=== PATIENT | female | born 1960 | race American Indian/Alaskan Native ===

== ENCOUNTER 2018-07-13 06:09 | Inpatient (IN) | payer MEDICARE ==
[2018-07-03 09:21] VITALS: BMI 27.9
[2018-07-13] MEDS ORDERED: Ropivacaine 0.5% 30ML IV ONE (07:02)
[2018-07-13] MEDS ORDERED: Propofol 10 mg/ml Inj (20 ML) ONE (07:05)
[2018-07-13] MEDS ORDERED: Succinylcholine 200 mg/10 ml Inj IV ONE (07:06)
[2018-07-13] MEDS ORDERED: Neostigmine 1:1000 (1 mg/ml) Inj ONE (07:06)
[2018-07-13] MEDS ORDERED: Rocuronium 10 mg/ml (5 ml) ONE ×2 (07:06→08:34)
[2018-07-13] MEDS ORDERED: Lidocaine 4% (Laryng-O-Jet) Kit MM ONE (07:06)
[2018-07-13] MEDS ORDERED: Midazolam 2 MG/2 ML VIAL ONE (07:06)
[2018-07-13 07:12] LABS: BASO % 0.6 % (0.0-2.0); EOS # 0.2 K/uL (0.0-0.7); EOS % 2.8 % (0.0-4.0); HEMOGLOBIN 12.5 g/dL (12.0-16.0); LYMPH # 2.9 K/uL (1.0-4.3); LYMPH % 34.7 % (20.0-40.0); MEAN CELL VOLUME 87.8 fl (81.0-99.0); MEAN PLATELET VOLUME 8.5 fl (7.2-11.7); MONO # 0.6 K/uL (0.0-0.8); MONO % 7.3 % (0.0-10.0); NEUT # 4.7 K/uL (1.8-7.0); NEUT % 54.6 % (50.0-75.0); NRBC % 0.1 % (0.0-0.0); RBC 4.31 Mil/uL (3.80-5.20); RED CELL DISTRIBUTION WIDTH 14.9 % (11.5-14.5); WHITE BLOOD COUNT 8.5 K/uL (4.8-10.8)
[2018-07-13] MEDS ORDERED: Absorbable Gelatin Sponge Size 12-7 ONE (07:13)
[2018-07-13] MEDS ORDERED: Bacitracin Ointment 30 GM TUBE ONE (07:13)
[2018-07-13] MEDS ORDERED: Thrombin Topical 5,000 Int Units Spray Kit ONE (07:14)
--- NOTE | 2018-07-13 07:16 | CP.PCM.HP ---
History of Present Illness - History of Present Illness History of Present Illness: Orthopedic: Dr Rodriguez Chief Complaint: Right knee pain The patient was seen and examined in the [facility] Unit HPI: 57 years old female with hx of osteoarthritis of the knees with partial left knee replacement and painful right knee. She has failed conservative treatment for the osteoarthtitis of the right knee with Intraarticular inje ctions, analgesics. She has decided on surgical management with a Right Total knee Replacement. PMH: Oteoarthritis PSH: Hysterectomy; Cholecystectomy; Partial left knee replacement; SH: Heavy smoker; No drugs; No Alcohol FH: States: No Known family Hx Allergies:Ampicillin Medication: reviewed Present on Admission - Present on Admission Any Indicators Present on Admission: No History of DVT/PE: No History of Uncontrolled Diabetes: No Urinary Catheter: No Decubitus Ulcer Present: No Review of Systems - Constitutional Constitutional: Chills, Fatigue, Fever, Headache - EENT Eyes: Requires Corrective Lenses. absent: Blurred Vision, Diplopia, Floaters Ears: absent: Decreased Hearing, Ear Discharge, Tinnitus Nose/Mouth/Throat: absent: Epistaxis, Nasal Congestion, Nasal Discharge - Cardiovascular Cardiovascular: absent: Chest Pain, Dyspnea, Edema - Respiratory Respiratory: absent: Cough, Dyspnea, Wheezing - Gastrointestinal Gastrointestinal: absent: Abdominal Pain, Constipation, Diarrhea - Genitourinary Genitourinary: absent: Dysuria, Flank Pain, Hematuria - Musculoskeletal Musculoskeletal: Arthralgias. absent: Back Pain, Muscle Cramps, Myalgias - Integumentary Integumentary: absent: Pruritus, Rash, Skin Ulcer, Sores, Striae, Swelling - Neurological Neurological: absent: Confusion, Dizziness, Focal Weakness - Psychiatric Psychiatric: absent: Anxiety, Depression, Panic Attacks - Endocrine Endocrine: absent: Palpitations, Polydipsia, Polyphagia, Polyuria - Hematologic/Lymphatic Hematologic: absent: Easy Bleeding, Easy Bruising Past Patient History - Past Medical History & Family History Past Medical History?: No - Past Social History Smoking Status: Heavy Smoker > 10 Cigarettes Daily Chewing Tobacco Use: No Cigar Use: No Alcohol: None Drugs: Denies - CARDIAC Hx Cardiac Disorders: No - PULMONARY Hx Respiratory Disorders: No - NEUROLOGICAL Hx Neurological Disorder: No - HEENT Hx HEENT Problems: No - RENAL Hx Chronic Kidney Disease: No - ENDOCRINE/METABOLIC Hx Endocrine Disorders: No - HEMATOLOGICAL/ONCOLOGICAL Hx Blood Disorders: No - INTEGUMENTARY Hx Dermatological Problems: No - MUSCULOSKELETAL/RHEUMATOLOGICAL Hx Musculoskeletal Disorders: Yes Hx Arthritis: Yes (knees) - GASTROINTESTINAL Hx Gastrointestinal Disorders: No - GENITOURINARY/GYNECOLOGICAL Hx Genitourinary Disorders: No - PSYCHIATRIC Hx Post Traumatic Stress Disorder: Yes - SURGICAL HISTORY Hx Surgeries: Yes Hx Cholecystectomy: Yes Hx Hysterectomy: Yes Hx Orthopedic Surgery: Yes (partial implant on left knee) - ANESTHESIA Hx Anesthesia: Yes Hx Anesthesia Reactions: No Has any member of the family had a problem w/ anesthesia?: No Meds Allergies/Adverse Reactions: Allergies Allergy/AdvReac Type Severity Reaction Status Date / Time ampicillin Allergy RASH Verified 07/03/18 09:27 Physical Exam - Constitutional Appears: No Acute Distress - Head Exam Head Exam: ATRAUMATIC, NORMAL INSPECTION, NORMOCEPHALIC - Eye Exam Eye Exam: EOMI, Normal appearance - ENT Exam ENT Exam: Mucous Membranes Moist, Normal Exam - Neck Exam Neck exam: Positive for: Full Rom, Normal Inspection. Negative for: Lymphadenopathy, Tenderness - Respiratory Exam Respiratory Exam: Clear to Auscultation Bilateral. absent: Rales, Rhonchi, Wheezes - Cardiovascular Exam Cardiovascular Exam: REGULAR RHYTHM, RRR, +S1, +S2 - GI/Abdominal Exam GI & Abdominal Exam: Normal Bowel Sounds, Soft - Rectal Exam Rectal Exam: Deferred - Extremities Exam Extremities exam: Positive for: full ROM, normal inspection. Negative for: pedal edema Additional comments: Tight knee pain - Back Exam Back exam: NORMAL INSPECTION. absent: CVA tenderness (L), CVA tenderness (R) - Neurological Exam Neurological exam: Alert, CN II-XII Intact, Oriented x3, Reflexes Normal - Psychiatric Exam Psychiatric exam: Normal Affect, Normal Mood - Skin Skin Exam: Dry, Intact, Normal Color, Warm Results - Vital Signs Recent Vital Signs: Last Vital Signs Temp 98 F 07/13/18 07:06 Pulse 72 07/13/18 07:06 Resp 18 07/13/18 07:06 BP 113/78 07/13/18 07:06 Pulse Ox 98 07/13/18 07:06 - Labs Result Diagrams: 07/13/18 06:50 Labs: Laboratory Results - last 24 hr 07/13/18 06:50 WBC 8.5 RBC 4.31 Hgb 12.5 Hct 37.9 MCV 87.8 MCH 29.0 MCHC 33.0 RDW 14.9 H Plt Count 247 MPV 8.5 Neut % (Auto) 54.6 Lymph % (Auto) 34.7 [place]ke % (Auto) 7.3 Eos % (Auto) 2.8 Baso % (Auto) 0.6 Neut # (Auto) 4.7 Lymph # (Auto) 2.9 Parke # (Auto) 0.6 Eos # (Auto) 0.2 Baso # (Auto) 0.0 Assessment & Plan - Assessment and Plan (Free Text) Plan: 57 years old female with hx of osteoarthritis and ossteonecrosis of the left knee which has failed conservative treatment. She has decided on surgical management with a Right Total knee Replacement. #. Right Knee Osteoarthritis #. Small Subchonral fracture along the posterior medial edge of the medial tibio-femoral plateau with extensive subchondral edema. ( Spontaneous osteonecrosis of the knee) - Dr Rodriguez on consult for [facility] - Orthopedic management - Pain management - PT/OT #. Stress Ulcer Prophylaxis with Pepcid #. DVT prophylaxis with Lovenox #. Code Status: full - Date & Time Date: 07/13/18 Time: 07:16
[2018-07-13] MEDS ORDERED: Tranexamic Acid 1,000 MG in Sodium Chloride 0.9% 100 ML IVPB ONE (07:20)
--- NOTE | 2018-07-13 07:31 | CP.PCM.CON ---
History of Present Illness - History of Present Illness History of Present Illness: Orthopedic consult: Dr. Rodriguez Patient is a 57 y/o female with PMH of HTN who presents for elective R TKA. The patient has had chronic right knee pain for many years that has progressively worsened over the past few months. The pain has been resistant to conservative means with PT, oral meds as well as intrarticular injections. It has been very difficult to perform her usual activities such as walking, climbing stairs and getting up from seated position due to the pain. She describes the pain as dull, intermittent and located diffuse about the knee. She has had prior successful L TKA and was discharged home stable. She denies any cardiac or thromboembolic events. She denies CP/SOB/N/V/D/fever/dysuria/melena. Review of Systems - Review of Systems All systems: reviewed and no additional remarkable complaints except Review of Systems: as per HPI Past Patient History - Past Medical History & Family History Past Medical History?: No Past Family History: Reviewed and not pertinent - Past Social History Smoking Status: Heavy Smoker > 10 Cigarettes Daily Alcohol: None Drugs: Denies - CARDIAC Hx Cardiac Disorders: No Hx Hypertension: Yes - PULMONARY Hx Respiratory Disorders: No - NEUROLOGICAL Hx Neurological Disorder: No - HEENT Hx HEENT Problems: No - RENAL Hx Chronic Kidney Disease: No - ENDOCRINE/METABOLIC Hx Endocrine Disorders: No - HEMATOLOGICAL/ONCOLOGICAL Hx Blood Disorders: No - INTEGUMENTARY Hx Dermatological Problems: No - MUSCULOSKELETAL/RHEUMATOLOGICAL Hx Musculoskeletal Disorders: Yes Hx Arthritis: Yes (knees) - GASTROINTESTINAL Hx Gastrointestinal Disorders: No - GENITOURINARY/GYNECOLOGICAL Hx Genitourinary Disorders: No - PSYCHIATRIC Hx Post Traumatic Stress Disorder: Yes - SURGICAL HISTORY Hx Surgeries: Yes Hx Hysterectomy: Yes Hx Orthopedic Surgery: Yes (partial implant on left knee) - ANESTHESIA Hx Anesthesia: Yes Hx Anesthesia Reactions: No Has any member of the family had a problem w/ anesthesia?: No Meds Allergies/Adverse Reactions: Allergies Allergy/AdvReac Type Severity Reaction Status Date / Time ampicillin Allergy RASH Verified 07/03/18 09:27 - Medications Medications: Current Medications Tranexamic Acid 1,000 mg/ (Sodium Chloride) 110 mls @ 12.5 mls/hr IVPB ONCE ONE Stop: 07/13/18 16:07 Physical Exam - Constitutional Appears: Well, No Acute Distress - Head Exam Head Exam: ATRAUMATIC, NORMOCEPHALIC - Eye Exam Eye Exam: EOMI, Normal appearance, PERRL - ENT Exam ENT Exam: Mucous Membranes Moist - Respiratory Exam Respiratory Exam: NORMAL BREATHING PATTERN - Cardiovascular Exam Cardiovascular Exam: +S1, +S2 - GI/Abdominal Exam GI & Abdominal Exam: Soft. absent: Tenderness - Extremities Exam Additional comments: R knee: mild swelling and effusion diffuse tenderness medially and laterally limited ROM due to pain sensation intact SP/DP/TN motor intact EHL/FHL/TA/G pedal pulses intact calves soft/NT b/l - Neurological Exam Neurological exam: Alert, Oriented x3 - Psychiatric Exam Psychiatric exam: Normal Affect, Normal Mood - Skin Skin Exam: Normal Color, Warm Results - Vital Signs Recent Vital Signs: Last Vital Signs Temp 98 F 07/13/18 07:06 Pulse 72 07/13/18 07:06 Resp 18 07/13/18 07:06 BP 113/78 07/13/18 07:06 Pulse Ox 98 07/13/18 07:06 - Labs Result Diagrams: 07/13/18 06:50 Labs: Laboratory Results - last 24 hr 07/13/18 06:50 WBC 8.5 RBC 4.31 Hgb 12.5 Hct 37.9 MCV 87.8 MCH 29.0 MCHC 33.0 RDW 14.9 H Plt Count 247 MPV 8.5 Neut % (Auto) 54.6 Lymph % (Auto) 34.7 [place] % (Auto) 7.3 Eos % (Auto) 2.8 Baso % (Auto) 0.6 Neut # (Auto) 4.7 Lymph # (Auto) 2.9 [place] # (Auto) 0.6 Eos # (Auto) 0.2 Baso # (Auto) 0.0 Assessment & Plan (1) Osteoarthritis of right knee Assessment and Plan: -OR today for R TKA -Risks/benefits/alternatives were explained to the patient who understands and agrees to proceed with above procedure. -admit to hospitalist -NPO -above d/w Dr. Rodriguez in agreement Status: Acute - Date & Time Date: 07/13/18 Time: 07:15
[2018-07-13 07:41] LABS: T4 11.5 ug/dl (5.5-11.0)
[2018-07-13] MEDS ORDERED: Lactated Ringer's 1,000 ML IV ONE (07:50)
[2018-07-13 07:55] LABS: T3 1.37 nmol/L (1.49-2.60)
[2018-07-13] MEDS ORDERED: Tranexamic Acid 100 mg/ml IV ONE (08:20)
[2018-07-13] MEDS ORDERED: Dexamethasone 4 mg/1 ml ONE (08:39)
[2018-07-13] MEDS ORDERED: Sodium Chloride 0.9% 500 ML IV ONE (09:35)
[2018-07-13] MEDS ORDERED: Dexamethasone 4 mg/1 ml IVP PRN (10:41)
--- NOTE | 2018-07-13 10:43 | PCM.ANESB2 ---
Popliteal Nerve Block - Popliteal Nerve Block Date of Procedure: 07/13/18 Anesthesiologist: Harman Skelton Pre-Procedure Diagnosis: R knee arthritis Post-Procedure Diagnosis: R knee arthritis Procedure Performed: Popliteal Nerve Block Right - Procedure Popliteal Nerve Block: This procedure was explained to the patient that it is for post-operative pain management. Consent was obtained after a thorough discussion with the patient regarding the benefits and possible complications of local anesthetic block of the sciatic nerve at the popliteal level. The patient was brought to the operating room and standard monitors are applied. Time-out was held with the circulating nurse to confirm the correct surgery and the appropriate block. After inducing general anesthesia, patient's operative leg was gently raised and supported and the groove in between the biceps femoris and vastus lateralis muscles was carefully palpated. The skin approximately 8cm above the popliteal crease was then marked. The ultrasound transducer was then applied to the posterior thigh approximately 8cm above the popliteal crease in the transverse plane and the sciatic nerve before its division was visualized lateral to the popliteal artery and in between the bicep femoris and semimembranosus/semitendinosus muscles. After identification, the lateral portion of the thigh was prepped with Chloraprep solution three times. At this point, a # 21 gauge Stimuplex insulated 4 inch needle was inserted into pre-marked area and advanced in a perpendicular direction. The needle was inserted above the ultrasound transducer in-plane towards the sciatic nerve in a [id number] direction. Needle advancement was performed carefully under direct ultrasound visualization. Nerve stimulator was used and dorsiflexion of the R foot was elicited at a current of 0.3 MA. After repeated negative aspiration, 30cc of 0.5% ropivacaine was injected in 5cc aliquots. Under ultrasound guidance the local anesthetics were observed surrounding sciatic nerve . The needle was removed intact and sterile dressing was applied. The patient tolerated the popliteal nerve block well with stable vital signs and was subsequently prepared for the surgery.
[2018-07-13] MEDS ORDERED: Lactated Ringer's 1,000 ML IV SCH ×2 (10:45→11:00)
--- NOTE | 2018-07-13 10:45 | PCM.ANESB3 ---
Femoral Nerve Block - Femoral Nerve Block Date of Procedure: 07/13/18 Anesthesiologist: Harman Skelton Pre-Procedure Diagnosis: R knee arthritis Post-Procedure Diagnosis: Same Procedure Performed: Femoral Nerve Block Right - Procedure Femoral Nerve Block: The procedure was explained to the patient that it is for the post-operative pain management. Consent was obtained after a thorough discussion with the patient regarding the benefits and possible complications of local anesthetic block of the femoral nerve at the inguinal crease area. The patient was brought to the operating room and standard monitors were applied. Time-out was held with the circulating nurse to confirm the correct surgery and the appropriate block. After inducing general anesthesia, patient was placed in supine position with fully extended lower extremities and the right groin exposed. The femoral artery was then carefully palpated. The ultrasound transducer was then applied to this area in the transverse plane and the femoral nerve was visualized lateral to the femoral artery and underneath the fascia iliaca. After thorough identification, the inguinal crease area was prepped with Chloraprep. At this point, a #22 gauge Stimuplex 2-inch needle was inserted immediately lateral to the femoral artery pulse at the inguinal crease and advanced perpendicularly. The needle was inserted to the ultrasound transducer in-plane towards the femoral nerve in a [id number] direction. Needle advancement was performed carefully under direct ultrasound visualization. Nerve stimulator was used and twitch of the quadriceps muscle was obtained at current of 0.3 MA. After negative aspiration, 30cc of 0.5% ropivacaine was injected in 5cc aliquots. Under ultrasound guidance the local anesthetics were observed spreading below fascia iliaca and around the femoral nerve. The needle was removed intact and sterile dressing was applied. The patient had stable vital signs, was conscious and in no apparent distress. The patient tolerated the femoral nerve block well with stable vital signs and w as prepared for subsequent surgery.
[2018-07-13] MEDS ORDERED: Oxycodone/Acetaminophen 5/325 mg Tab PO PRN ×2 (10:46)
--- NOTE | 2018-07-13 12:28 | RAD ---
Date of service: 07/13/2018 PROCEDURE: Right knee HISTORY: s/p R TKA COMPARISON: None TECHNIQUE: Standard protocol for this study/examination. FINDINGS: Expected postoperative findings related to right TKA. IMPRESSION: Satisfactory postoperative status.
--- NOTE | 2018-07-13 15:25 | PCM.SURG1 ---
Surgeon's Initial Post Op Note - Surgeon's Notes Surgeon: Jennifer Toppiece Chopper: AUGUSTUS Winn/ 2nd assist Pardeep Lovelace PA-C Type of Anesthesia: General Endo, Block Regional Anesthesia Administered By: Harman King Pre-Operative Diagnosis: tricompartmental O/A R knee with evidence of osteonecrosis Operative Findings: tricompartmental O/A R Knee. tricomaprtmental synovitis. osteonecrosis medial tiibla plateau Post-Operative Diagnosis: same Operation Performed: R TKR. posterior capsular release. lateralpatella release. anterior and posterior synovectomy Specimen/Specimens Removed: cartilage/bone/synvoium Estimated Blood Loss: EBL {In ML}: 75 Blood Products Given: N/A Drains Used: No Drains Post-Op Condition: Fair Date of Surgery/Procedure: 07/13/18 Time of Surgery/Procedure: 08:50 (time in [id number]/anesthesia indcutrion time 7:50)
[2018-07-13] MEDS: Clindamycin 600mg/50ml D5W 600 MG/50 ML VIAL IVPB SCH (17:07)
[2018-07-13] MEDS: Morphine 4 MG/ML VIAL IVP PRN ×2 (18:34→22:21)
[2018-07-14] MEDS: Clindamycin 600mg/50ml D5W 600 MG/50 ML VIAL IVPB SCH (00:46)
[2018-07-14] MEDS: Morphine 4 MG/ML VIAL IVP PRN ×3 (02:22→10:11)
[2018-07-14] MEDS ORDERED: Morphine 4 MG/ML VIAL IVP ONE (04:42)
[2018-07-14 06:20] LABS: HEMOGLOBIN 11.6 g/dL (12.0-16.0); MEAN CELL VOLUME 87.3 fl (81.0-99.0); MEAN CORPUSCULAR HEMOGLOBIN 28.8 pg (27.0-31.0); RBC 4.03 Mil/uL (3.80-5.20); RED CELL DISTRIBUTION WIDTH 14.9 % (11.5-14.5); WHITE BLOOD COUNT 11.7 K/uL (4.8-10.8)
[2018-07-14 06:32] LABS: BLOOD UREA NITROGEN 8 mg/dl (7-17); CALCIUM 9.8 mg/dL (8.4-10.2); GFR NON-AFRICAN AMERICAN > 60
--- NOTE | 2018-07-14 06:56 | CP.PCM.PN ---
<Keron Foreman - Last Filed: 07/14/18 13:30> Subjective - Date & Time of Evaluation Date of Evaluation: 07/14/18 Time of Evaluation: 06:56 - Subjective Subjective: 57F seen and evaluated at bedside. Rates pain 8/10 today. States ortho is aware. States nerve block wore off last night and had trouble sleeping. Denies N/V/F/C/SOB/CP today. Reports knee dressing was changed this morning. Objective - Vital Signs/Intake and Output Vital Signs (last 24 hours): Temp Pulse Resp BP Pulse Ox 98.8 F 76 20 127/74 98 07/14/18 03:46 07/14/18 03:46 07/14/18 03:46 07/14/18 03:46 07/14/18 03:46 Intake and Output: 07/13/18 07/14/18 18:59 06:59 Intake Total 1600 Output Total 500 Balance 1100 - Medications Medications: Current Medications Acetaminophen (Tylenol 325mg Tab) 650 mg PO Q4 PRN PRN Reason: Fever 101 degrees fahrenheit Docusate Sodium (Colace) 100 mg PO BID [facility] Last Admin: 07/13/18 17:07 Dose: 100 mg Enoxaparin Sodium (Lovenox) 40 mg SC DAILY [facility]; Protocol Ferrous Sulfate (Feosol) 325 mg PO TID [facility] Last Admin: 07/13/18 17:07 Dose: 325 mg Folic Acid (Folic Acid) 1 mg PO DAILY [facility] Lactated Ringer's (Lactated Ringer's) 1,000 mls @ 125 mls/hr IV .Q8H [facility] Last Admin: 07/13/18 10:32 Dose: 200 mls Clindamycin Phosphate (Cleocin) 600 mg in 50 mls @ 100 mls/hr IVPB Q8 [facility]; Protocol Last Admin: 07/14/18 00:46 Dose: 100 mls/hr Lactated Ringer's (Lactated Ringer's) 1,000 mls @ 100 mls/hr IV .Q10H [facility] Last Admin: 07/13/18 22:20 Dose: 100 mls/hr Morphine Sulfate (Morphine) 4 mg IVP Q4 PRN PRN Reason: Pain, severe (8-10) Last Admin: 07/14/18 06:18 Dose: 4 mg Ondansetron HCl (Zofran Inj) 4 mg IVP Q4 PRN PRN Reason: Nausea/Vomiting Oxycodone/Acetaminophen (Percocet 5/325 Mg Tab) 1 tab PO Q4 PRN PRN Reason: Pain, Mild (1-3) Stop: 07/16/18 10:47 Oxycodone/Acetaminophen (Percocet 5/325 Mg Tab) 2 tab PO Q4 PRN PRN Reason: Pain, moderate (4-7) Stop: 07/16/18 10:47 Last Admin: 07/14/18 01:41 Dose: 2 tab - Labs Labs: 07/14/18 05:25 07/14/18 05:25 - Constitutional Appears: Well, Non-toxic, No Acute Distress - Head Exam Head Exam: ATRAUMATIC, NORMOCEPHALIC - ENT Exam ENT Exam: Mucous Membranes Moist, Normal Exam - Respiratory Exam Respiratory Exam: Clear to Ausculation Bilateral, NORMAL BREATHING PATTERN - Cardiovascular Exam Cardiovascular Exam: REGULAR RHYTHM, +S1, +S2 - GI/Abdominal Exam GI & Abdominal Exam: Soft, Normal Bowel Sounds. absent: Tenderness - Extremities Exam Additional comments: R knee: mild swelling and effusion diffuse tenderness medially and laterally limited ROM due to pain sensation intact SP/DP/TN motor intact EHL/FHL/TA/G pedal pulses intact calves soft/NT b/l - Neurological Exam Neurological Exam: Alert, Oriented x3 - Psychiatric Exam Psychiatric exam: Normal Affect, Normal Mood - Skin Skin Exam: Normal Color, Warm Assessment and Plan - Assessment and Plan (Free Text) Assessment: 57F with hx of osteoarthritis and ossteonecrosis POD 1 R total knee replacement Plan: 1. Right Knee Osteoarthritis - x-ray - Small Subchonral fracture along the posterior medial edge of the medial tibio-femoral plateau with extensive subchondral edema. ( Spontaneous osteonecrosis of the knee) - postop x-ray - satisfactory postop status - Dr Rodriguez on consult for Orthopedic - per ortho, for d/c tomorrow - POD 1 TKR - Orthopedic management - Pain management consulted - PT/OT - benefit from further skilled treatment, patient desire to go home - clindamycin 600mg 2 doses given 2. Stress Ulcer Prophylaxis - pepcid 3. DVT prophylaxis - Lovenox 4. Full code <Becky Rhoades - Last Filed: 07/14/18 16:32> Objective - Vital Signs/Intake and Output Vital Signs (last 24 hours): Temp Pulse Resp BP Pulse Ox 98.6 F 78 20 156/82 H 98 07/14/18 08:04 07/14/18 11:36 07/14/18 08:04 07/14/18 08:04 07/14/18 08:04 - Medications Medications: Current Medications Acetaminophen (Tylenol 325mg Tab) 975 mg PO Q8 [facility] Stop: 07/16/18 09:01 Last Admin: 07/14/18 08:44 Dose: 975 mg Cyproheptadine HCl (Periactin) 4 mg PO TID [facility] Docusate Sodium (Colace) 100 mg PO BID [facility] Last Admin: 07/14/18 08:41 Dose: 100 mg Enoxaparin Sodium (Lovenox) 40 mg SC DAILY [facility]; Protocol Last Admin: 07/14/18 10:12 Dose: 40 mg Ferrous Sulfate (Feosol) 325 mg PO TID [facility] Last Admin: 07/14/18 13:06 Dose: 325 mg Folic Acid (Folic Acid) 1 mg PO DAILY [facility] Last Admin: 07/14/18 08:41 Dose: 1 mg Gabapentin (Neurontin) 600 mg PO BID [facility] Last Admin: 07/14/18 10:12 Dose: 600 mg Home Med (Doxepin Hcl [Doxepin Hcl]) 150 mg PO DAILY [facility] Hydromorphone HCl (Dilaudid 0.2 Mg/Ml Drug Safety Specialist) 0 mg IV Q1 [facility]; Protocol Last Admin: 07/14/18 11:37 Dose: 6 mg Morphine Sulfate (Morphine) 4 mg IVP Q4 PRN PRN Reason: Pain, severe (8-10) Last Admin: 07/14/18 10:11 Dose: 4 mg Ondansetron HCl (Zofran Inj) 4 mg IVP Q4 PRN PRN Reason: Nausea/Vomiting Oxycodone HCl (Oxycodone Immediate Release Tab) 10 mg PO Q4 PRN PRN Reason: Pain, moderate (4-7) Last Admin: 07/14/18 08:39 Dose: 10 mg Trazodone HCl (Desyrel) 100 mg PO [facility] - Labs Labs: 07/14/18 05:25 07/14/18 05:25 Attending/Attestation - Attestation I have personally seen and examined this patient.: Yes I have fully participated in the care of the patient.: Yes I have reviewed all pertinent clinical information, including history, physical exam and plan: Yes Notes (Text): 1. s/p Right Knee TKR - Pain mgt consulted - rec starting Dilaudid [employer]PER[employer]OR - PT/OT consult - DVT proph- Lovenox 2. Depression - Pt takes Doxepin, Cyproheptadine , Trazodone and Gabapentin at home ( has been on these meds for many years), we will continue 3. HTN - Hold home med ( diuretics), instead will give low dose Norvasc as pt requires volume post op
[2018-07-14] MEDS ORDERED: Potassium Chloride 20 mEq ER Tab PO ONE (08:26)
[2018-07-14] MEDS ORDERED: oxyCODONE 10 mg Immediate Release Tab PO PRN (08:26)
[2018-07-14] MEDS ORDERED: Lactated Ringer's 1,000 ML IV SCH (08:30)
--- NOTE | 2018-07-14 08:30 | CP.PCM.PN ---
Subjective - Date & Time of Evaluation Date of Evaluation: 07/14/18 Time of Evaluation: 07:30 - Subjective Subjective: Patient seen and examined at bedside. Pain rated 8/10 this AM to posterior and anterior knee. Noted nerve block wore off last night, unable to sleep due to pain. No other complaints. Denies CP/SOB/fever/CASTANEDA. Objective - Vital Signs/Intake and Output Vital Signs (last 24 hours): Temp Pulse Resp BP Pulse Ox 98.6 F 63 20 156/82 H 98 07/14/18 08:04 07/14/18 08:04 07/14/18 08:04 07/14/18 08:04 07/14/18 08:04 - Medications Medications: Current Medications Acetaminophen (Tylenol 325mg Tab) 975 mg PO Q8 [facility] Stop: 07/16/18 09:01 Docusate Sodium (Colace) 100 mg PO BID [facility] Last Admin: 07/13/18 17:07 Dose: 100 mg Enoxaparin Sodium (Lovenox) 40 mg SC DAILY [facility]; Protocol Ferrous Sulfate (Feosol) 325 mg PO TID [facility] Last Admin: 07/13/18 17:07 Dose: 325 mg Folic Acid (Folic Acid) 1 mg PO DAILY [facility] Lactated Ringer's (Lactated Ringer's) 1,000 mls @ 125 mls/hr IV .Q8H [facility] Last Admin: 07/13/18 10:32 Dose: 200 mls Lactated Ringer's (Lactated Ringer's) 1,000 mls @ 100 mls/hr IV .Q10H [facility] Last Admin: 07/13/18 22:20 Dose: 100 mls/hr Morphine Sulfate (Morphine) 4 mg IVP Q4 PRN PRN Reason: Pain, severe (8-10) Last Admin: 07/14/18 06:18 Dose: 4 mg Ondansetron HCl (Zofran Inj) 4 mg IVP Q4 PRN PRN Reason: Nausea/Vomiting Oxycodone HCl (Oxycodone Immediate Release Tab) 10 mg PO Q4 PRN PRN Reason: Pain, moderate (4-7) Potassium Chloride (K-Dur 20 Meq Er Tab) 20 meq PO ONCE ONE Stop: 07/14/18 08:27 - Labs Labs: 07/14/18 05:25 07/14/18 05:25 - Extremities Exam Additional comments: R knee: Dressings CDI, Aquacel CDI mod diffuse tenderness anteriorly compartments soft sensation intact SP/DP/TN motor intact EHL/FHL/TA/G pedal pulses intact calves soft NT b/l Assessment and Plan (1) Osteoarthritis of right knee Assessment & Plan: POD# 1 s/p R TKA -pain management consult ordered -outer dressings changed, reapplied loosely -PT/OT WBAT -DVT ppx -discharge planning to home tomorrow -above d/w Dr. Rodriguez in agreement Status: Acute
--- NOTE | 2018-07-14 10:06 | OP ---
PROCEDURE DATE: 07/13/2018 TIME OF SURGERY: 08:50. TIME IN THE ROOM ANESTHESIA INDUCTION TIME: 07:50. PREOPERATIVE DIAGNOSIS: Tricompartmental osteoarthritis of the right knee with evidence of osteonecrosis at the medial tibial plateau. POSTOPERATIVE DIAGNOSIS: Tricompartmental osteoarthritis of the right knee with evidence of osteonecrosis at the medial tibial plateau. OPERATIVE FINDINGS: 1. Tricompartmental osteoarthritis of the right knee. 2. Tricompartmental synovitis. 3. Osteonecrosis, medial tibial plateau. PROCEDURE: 1. Right total knee replacement arthroplasty. 2. Posterior capsular release. 3. Lateral patellar retinacular release. 4. Anterior and posterior synovectomy. 5. Computer navigation. SURGEON: Jayden Rodriguez MD. NOTE TELLER: Esperanza Marinelli, certified registered nursing culture media laboratory assistant. SECOND BEARINGIZER: Pardeep Lovelace PA-C. SPECIMENS REMOVED: Cartilage, bone, synovium. BLOOD LOSS: 75 mL. No blood products given. DRAINS: No drains. POSTOPERATIVE CONDITION: Fair. OPERATIVE INDICATION: Brenda Lacy is a 57-year-old woman who presents with severe pain and restricted range of motion. The patient had undergone unicompartmental replacement of the contralateral knee and is unhappy with it, but she is now having severe pain and restricted range of motion of the right knee and demands replacement arthroplasty. Pros, cons, risks and benefits of alternative procedures including benign neglect, arthroscopy, and the total knee replacement and unicompartmental replacement were discussed. The patient wishes total knee replacement arthroplasty because of her bad experience with unicompartmental arthroplasty in [place]. MRI examination was reviewed and again pros, cons, risks and benefits were discussed. After the satisfactory induction of general and regional anesthesia, after having identified side, site, and procedure and critical pause/time-out after the satisfactory induction of the anesthetic, the patient identified as Brenda Lacy in the supine position with all bony prominences well padded. The right lower extremity was prepped and free draped in usual fashion for extremity surgery. The tourniquet had been applied, but was not yet inflated. After exsanguinating the limb using a 6-inch Esmarch bandage, the tourniquet which had been applied was inflated to 350 mmHg. A 6-inch straight midline approach was made to the knee. The skin incision was carried down through the skin and subcutaneous tissue. Medial arthrotomy was accomplished. The patella was everted. The knee was flexed. Dissection was carried around posteromedially to the direct head of the semimembranosus tendon. A portion of patellar ligament was elevated. The tibia was dislocated anteriorly. Anterior posterior cruciate ligaments were excised. Medial and lateral meniscectomies were accomplished. The computer navigation commences with the anterior strut placed on the proximal medial aspect of the tibia for the computer navigation and accelerometer. This having been accomplished, the sensor and the accelerometer placed. Registration was accomplished. Offset was determined from the posterior insertion of the anterior cruciate ligament. Medial and lateral registration was accomplished, medial malleolus, lateral malleolus. The varus-valgus of the tibial cut was set at 0 degrees with 3.5 degrees posterior slope. The initial osteotomy was accomplished 10 mm below the more prominent side. This having been accomplished, the #1 tibial component template was placed back to rotation of the tibial component with the lateral aspect of the tibial condyle, mid malleolar axis and medial third of the tibial tuberosity. At this point in time, attention was turned to the femur. The guide pin is placed superior to the intercondylar notch. The distal femoral cutting guide was placed. At this point an anterior and posterior synovectomy was accomplished. The distal femoral cutting guide is affixed. The sensor and the camera for the computer navigation are fixed and this having been accomplished, the cutting block is placed along the mid malleolar axis. The cutting block is set to neutral on the mechanical axis at 10 degrees. This having been accomplished, the distal femoral cut is accomplished after computer navigation defines the distal femoral cut. This having been accomplished, anterior and posterior sizing was accomplished. The four-in-one block is placed along the epicondylar axis. Posterior condyles were osteotomized, anterior osteotomy was accomplished as well as chamfer cuts. The tensor was placed. Posterior capsule was released and lateral patellar retinacular release accomplished as well. The femoral notch is accomplished as well. This having been accomplished, trialing was accomplished with 13 mm polyethylene found to be excellent. Attention was turned to the patella. Patella osteotomy was accomplished. Patella was sized to 32 mm. This having been accomplished, anterior and posterior osteotomies having been accomplished, the lateral patellar retinaculum release was accomplished and the posterior capsule was released. Trialing was accomplished was found to be excellent balance. At this point in time, the femur, tibia, and patella are prepared. The #2 femoral component was applied, #1 cemented tibial tray, 30 mm polyethylene, 32 mm patella. At this point in time, the tourniquet was deflated, hemostasis controlled. Closures in layers, #2 FiberWire for the medial arthrotomy followed by 0 Vicryl, 2-0 Vicryl and wanda for skin. Blood loss approximately 75 mL. Postoperative x-rays reveal excellent position of the construct. The computer navigation apparatus had of course been removed. Jayden Rodriguez MD
[2018-07-14] MEDS: Enoxaparin 40 mg Syringe SC SCH (10:12)
[2018-07-15 06:23] LABS: BASO % 0.4 % (0.0-2.0); EOS # 0.1 K/uL (0.0-0.7); EOS % 0.8 % (0.0-4.0); HEMOGLOBIN 12.3 g/dL (12.0-16.0); LYMPH # 2.1 K/uL (1.0-4.3); LYMPH % 21.1 % (20.0-40.0); MEAN CELL VOLUME 87.3 fl (81.0-99.0); MEAN CORPUSCULAR HGB CONC 33.2 g/dL (33.0-37.0); MEAN PLATELET VOLUME 8.9 fl (7.2-11.7); MONO # 0.8 K/uL (0.0-0.8); MONO % 8.4 % (0.0-10.0); NEUT % 69.3 % (50.0-75.0); RBC 4.23 Mil/uL (3.80-5.20); RED CELL DISTRIBUTION WIDTH 14.9 % (11.5-14.5); WHITE BLOOD COUNT 10.1 K/uL (4.8-10.8)
[2018-07-15 06:52] LABS: BLOOD UREA NITROGEN 4 mg/dl (7-17); GFR NON-AFRICAN AMERICAN > 60
[2018-07-15] MEDS: Enoxaparin 40 mg Syringe SC SCH (08:59)
--- NOTE | 2018-07-15 09:01 | CP.PCM.CON ---
History of Present Illness - History of Present Illness History of Present Illness: 57yF POD 2 s/p R TKR. Pt is currently on IV COKE BURNER, and as per nurse there are no overnight events. Pt has pain in right knee, VAS 3/10 which is intermittent dull pain which is worse with movement and better with rest and medication. Pain has pain in operative site which is controlled on current rx. Pt to participate in PT. Past Patient History - Past Medical History & Family History Past Medical History?: No - Past Social History Smoking Status: Heavy Smoker > 10 Cigarettes Daily Chewing Tobacco Use: No Cigar Use: No Alcohol: None Drugs: Denies - CARDIAC Hx Cardiac Disorders: No - PULMONARY Hx Respiratory Disorders: No - NEUROLOGICAL Hx Neurological Disorder: No - HEENT Hx HEENT Problems: No - RENAL Hx Chronic Kidney Disease: No - ENDOCRINE/METABOLIC Hx Endocrine Disorders: No - HEMATOLOGICAL/ONCOLOGICAL Hx Blood Disorders: No - INTEGUMENTARY Hx Dermatological Problems: No - MUSCULOSKELETAL/RHEUMATOLOGICAL Hx Musculoskeletal Disorders: Yes Hx Arthritis: Yes (knees) - GASTROINTESTINAL Hx Gastrointestinal Disorders: No - GENITOURINARY/GYNECOLOGICAL Hx Genitourinary Disorders: No - PSYCHIATRIC Hx Post Traumatic Stress Disorder: Yes - SURGICAL HISTORY Hx Surgeries: Yes Hx Cholecystectomy: Yes Hx Hysterectomy: Yes Hx Orthopedic Surgery: Yes (partial implant on left knee) - ANESTHESIA Hx Anesthesia: Yes Hx Anesthesia Reactions: No Has any member of the family had a problem w/ anesthesia?: No Meds Allergies/Adverse Reactions: Allergies Allergy/AdvReac Type Severity Reaction Status Date / Time ampicillin Allergy RASH Verified 07/03/18 09:27 - Medications Medications: Current Medications Acetaminophen (Tylenol 325mg Tab) 975 mg PO Q8 [facility] Stop: 07/16/18 09:01 Last Admin: 07/15/18 01:06 Dose: 975 mg Cyproheptadine HCl (Periactin) 4 mg PO TID [facility] Last Admin: 07/14/18 17:45 Dose: 4 mg Docusate Sodium (Colace) 100 mg PO BID [facility] Last Admin: 07/14/18 17:30 Dose: 100 mg Doxepin HCl (Sinequan) 150 mg PO DAILY [facility] Enoxaparin Sodium (Lovenox) 40 mg SC DAILY [facility]; Protocol Last Admin: 07/14/18 10:12 Dose: 40 mg Ferrous Sulfate (Feosol) 325 mg PO TID [facility] Last Admin: 07/14/18 17:30 Dose: 325 mg Folic Acid (Folic Acid) 1 mg PO DAILY [facility] Last Admin: 07/14/18 08:41 Dose: 1 mg Gabapentin (Neurontin) 600 mg PO BID [facility] Last Admin: 07/14/18 17:30 Dose: 600 mg Hydromorphone HCl (Dilaudid 0.2 Mg/Ml Doll Maker) 0 mg IV Q1 [facility]; Protocol Last Admin: 07/15/18 02:01 Dose: 6 mg Morphine Sulfate (Morphine) 4 mg IVP Q4 PRN PRN Reason: Pain, severe (8-10) Last Admin: 07/14/18 10:11 Dose: 4 mg Ondansetron HCl (Zofran Inj) 4 mg IVP Q4 PRN PRN Reason: Nausea/Vomiting Oxycodone HCl (Oxycodone Immediate Release Tab) 10 mg PO Q4 PRN PRN Reason: Pain, moderate (4-7) Last Admin: 07/14/18 08:39 Dose: 10 mg Trazodone HCl (Desyrel) 100 mg PO HS [facility] Last Admin: 07/14/18 21:22 Dose: 100 mg Physical Exam - Constitutional Appears: Non-toxic, No Acute Distress - Neurological Exam Additional comments: RLE c/d/i pt can wiggle toes, sensation grossly intact DP flex 5/5 Results - Vital Signs Recent Vital Signs: Last Vital Signs Temp 98.8 F 07/15/18 04:00 Pulse 86 07/15/18 04:00 Resp 20 07/15/18 04:00 BP 159/90 H 07/15/18 04:00 Pulse Ox 99 07/15/18 04:00 - Labs Result Diagrams: 07/15/18 05:30 07/15/18 05:30 Labs: Laboratory Results - last 24 hr 07/14/18 07/15/18 07/15/18 05:25 05:30 05:30 WBC 10.1 RBC 4.23 Hgb 12.3 Hct 36.9 MCV 87.3 MCH 29.0 MCHC 33.2 RDW 14.9 H Plt Count 234 MPV 8.9 Neut % (Auto) 69.3 Lymph % (Auto) 21.1 [place] % (Auto) 8.4 Eos % (Auto) 0.8 Baso % (Auto) 0.4 Neut # (Auto) 7.0 Lymph # (Auto) 2.1 [place]man # (Auto) 0.8 Eos # (Auto) 0.1 Baso # (Auto) 0.0 Sodium 139 138 Potassium 3.5 L 4.0 Chloride 105 104 Carbon Dioxide 22 25 Anion Gap 16 13 BUN 8 4 L Creatinine 0.7 0.6 L Est GFR ( Amer) > 60 > 60 Est GFR (Non-Af Amer) > 60 > 60 Random Glucose 107 H 113 H Calcium 9.8 10.0 TSH 3rd Generation < 0.02 L < 0.02 L Assessment & Plan - Assessment and Plan (Free Text) Plan: 1. PT 2. May continue COKE BURNER and transition to PO pain meds. Pt can transition to percocet 5/325 1-2 tabs po q4-6h prn moderate to severe pain. Pt can also have IV toradol as an adjunct. 3. Care as per primary team
[2018-07-15] MEDS ORDERED: Oxycodone/Acetaminophen 5/325 mg Tab PO PRN ×2 (10:43)
--- NOTE | 2018-07-15 11:58 | CP.PCM.DIS ---
<Keron Foreman - Last Filed: 07/15/18 11:56> Provider - Provider Date of Admission: 07/13/18 10:46 Attending physician: Papo Saravia Consults: 07/13/18 07:16 Orthopedic Consult Routine Comment: Consulting Provider: Jayden Rodriguez III Consulting Physician: Jayden Rodriguez III Reason for Consult: Right knee arthritis 07/13/18 10:46 Case Management Referral Routine Comment: Physician Instructions: Reason For Exam: Reason for Referral: Discharge Planning 07/14/18 08:24 Physician Consult Routine Comment: Consulting Provider: Kacie Garcia Consulting Physician: Kacie Garcia Reason for Consult: pain mgmt, s/p R TKA Time Spent in preparation of Discharge (in minutes): 30 Diagnosis - Discharge Diagnosis (1) Osteoarthritis of right knee Status: Acute Hospital Course - Lab Results Lab Results: Most Recent Lab Values WBC 10.1 K/uL (4.8-10.8) 07/15/18 05:30 RBC 4.23 Mil/uL (3.80-5.20) 07/15/18 05:30 Hgb 12.3 g/dL (12.0-16.0) 07/15/18 05:30 Hct 36.9 % (34.0-47.0) 07/15/18 05:30 MCV 87.3 fl (81.0-99.0) 07/15/18 05:30 MCH 29.0 pg (27.0-31.0) 07/15/18 05:30 MCHC 33.2 g/dL (33.0-37.0) 07/15/18 05:30 RDW 14.9 % (11.5-14.5) H 07/15/18 05:30 Plt Count 234 K/uL (130-400) 07/15/18 05:30 MPV 8.9 fl (7.2-11.7) 07/15/18 05:30 Neut % (Auto) 69.3 % (50.0-75.0) 07/15/18 05:30 Lymph % (Auto) 21.1 % (20.0-40.0) 07/15/18 05:30 [place] % (Auto) 8.4 % (0.0-10.0) 07/15/18 05:30 Eos % (Auto) 0.8 % (0.0-4.0) 07/15/18 05:30 Baso % (Auto) 0.4 % (0.0-2.0) 07/15/18 05:30 Neut # (Auto) 7.0 K/uL (1.8-7.0) 07/15/18 05:30 Lymph # (Auto) 2.1 K/uL (1.0-4.3) 07/15/18 05:30 [place] # (Auto) 0.8 K/uL (0.0-0.8) 07/15/18 05:30 Eos # (Auto) 0.1 K/uL (0.0-0.7) 07/15/18 05:30 Baso # (Auto) 0.0 K/uL (0.0-0.2) 07/15/18 05:30 Sodium 138 mmol/l (132-148) 07/15/18 05:30 Potassium 4.0 MMOL/L (3.6-5.0) 07/15/18 05:30 Chloride 104 mmol/L (98-107) 07/15/18 05:30 Carbon Dioxide 25 mmol/L (22-30) 07/15/18 05:30 Anion Gap 13 (10-20) 07/15/18 05:30 BUN 4 mg/dl (7-17) L 07/15/18 05:30 Creatinine 0.6 mg/dl (0.7-1.2) L 07/15/18 05:30 Est GFR ( Amer) > 60 07/15/18 05:30 Est GFR (Non-Af Amer) > 60 07/15/18 05:30 Random Glucose 113 mg/dL (65-105) H 07/15/18 05:30 Calcium 10.0 mg/dL (8.4-10.2) 07/15/18 05:30 Thyroxine (T4) 11.5 ug/dl (5.5-11.0) H 07/13/18 06:50 Total T3 1.37 nmol/L (1.49-2.60) L 07/13/18 06:50 TSH 3rd Generation < 0.02 mIU/ML (0.46-4.68) L 07/15/18 05:30 Blood Type A POSITIVE 07/13/18 06:50 Blood Type Confirm A POSITIVE 07/13/18 08:00 Antibody Screen Negative 07/13/18 06:50 Crossmatch See Detail 07/13/18 06:50 BBK History Checked No verified bt 07/13/18 06:50 - Hospital Course Hospital Course: 57 years old female with hx of osteoarthritis of the knees with partial left knee replacement and painful right knee was admitted under hospitalist service and taken to the OR for a R total knee replacement with Dr. Rodriguez as she had failed conservative treatment for the osteoarthtitis of the right knee with Intraarticular injections, analgesics and she decided on surgical management. She is POD 2 today. Post op x-ray showed satisfactory postop status. She was given 3 doses of clindamycin for prophylaxis s/p right knee surgery. She was seen by PT/OT and was recommended further skilled physical therapy and treatment. Pain management was consulted, d/c [facility], and was transitioned to PO pain meds with percocet for moderate and severe pain. Also instructed to use toradol IV as adjunct. She was started on amlodipine 5mg while in house. Her TSH and thyroid hormones were abnormal and have been monitored while in house. She will be d/c to TCU for pain management, PT, and deconditioning. - Date & Time of H&P Date of H&P: 07/15/18 Time of H&P: 11:57 Discharge Exam - Head Exam Head Exam: ATRAUMATIC, NORMOCEPHALIC - Eye Exam Eye Exam: EOMI, Normal appearance - ENT Exam ENT Exam: Mucous Membranes Moist, Normal Exam - Neck Exam Neck exam: Full Rom - Respiratory Exam Respiratory Exam: Clear to PA & Lateral, NORMAL BREATHING PATTERN - Cardiovascular Exam Cardiovascular Exam: REGULAR RHYTHM, +S1, +S2 - GI/Abdominal Exam GI & Abdominal Exam: Normal Bowel Sounds, Soft - Extremities Exam Additional comments: R knee: mild swelling and effusion diffuse tenderness medially and laterally limited ROM due to pain sensation intact SP/DP/TN motor intact EHL/FHL/TA/G pedal pulses intact calves soft/NT b/l - Neurological Exam Neurological exam: Alert, Oriented x3 - Psychiatric Exam Psychiatric exam: Normal Affect, Normal Mood - Skin Skin Exam: Intact, Normal Color, Warm Discharge Plan - Follow Up Plan Condition: STABLE Disposition: REHAB FACILITY/REHAB UNIT Instructions: Osteoarthritis (DC), Total Knee Replacement (DC) Additional Instructions: d/c to TCU Referrals: Jayden Rodriguez III, MD [Staff Provider] - Clinical Quality Measures - Date & Time of Discharge Summary Date of Discharge Summary: 07/15/18 Time of Discharge Summary: 11:58 <Becky Rhoades - Last Filed: 07/15/18 17:25> Provider - Provider Date of Admission: 07/13/18 10:46 Attending physician: Papo Saravia Consults: 07/13/18 07:16 Orthopedic Consult Routine Comment: Consulting Provider: Jayden Rodriguez III Consulting Physician: Jayden Rodriguez III Reason for Consult: Right knee arthritis 07/13/18 10:46 Case Management Referral Routine Comment: Physician Instructions: Reason For Exam: Reason for Referral: Discharge Planning 07/14/18 08:24 Physician Consult Routine Comment: Consulting Provider: Kacie Garcia Consulting Physician: Kacie Garcia Reason for Consult: pain mgmt, s/p R TKA Hospital Course - Lab Results Lab Results: Most Recent Lab Values WBC 10.1 K/uL (4.8-10.8) 07/15/18 05:30 RBC 4.23 Mil/uL (3.80-5.20) 07/15/18 05:30 Hgb 12.3 g/dL (12.0-16.0) 07/15/18 05:30 Hct 36.9 % (34.0-47.0) 07/15/18 05:30 MCV 87.3 fl (81.0-99.0) 07/15/18 05:30 MCH 29.0 pg (27.0-31.0) 07/15/18 05:30 MCHC 33.2 g/dL (33.0-37.0) 07/15/18 05:30 RDW 14.9 % (11.5-14.5) H 07/15/18 05:30 Plt Count 234 K/uL (130-400) 07/15/18 05:30 MPV 8.9 fl (7.2-11.7) 07/15/18 05:30 Neut % (Auto) 69.3 % (50.0-75.0) 07/15/18 05:30 Lymph % (Auto) 21.1 % (20.0-40.0) 07/15/18 05:30 [place] % (Auto) 8.4 % (0.0-10.0) 07/15/18 05:30 Eos % (Auto) 0.8 % (0.0-4.0) 07/15/18 05:30 Baso % (Auto) 0.4 % (0.0-2.0) 07/15/18 05:30 Neut # (Auto) 7.0 K/uL (1.8-7.0) 07/15/18 05:30 Lymph # (Auto) 2.1 K/uL (1.0-4.3) 07/15/18 05:30 [place] # (Auto) 0.8 K/uL (0.0-0.8) 07/15/18 05:30 Eos # (Auto) 0.1 K/uL (0.0-0.7) 07/15/18 05:30 Baso # (Auto) 0.0 K/uL (0.0-0.2) 07/15/18 05:30 Sodium 138 mmol/l (132-148) 07/15/18 05:30 Potassium 4.0 MMOL/L (3.6-5.0) 07/15/18 05:30 Chloride 104 mmol/L (98-107) 07/15/18 05:30 Carbon Dioxide 25 mmol/L (22-30) 07/15/18 05:30 Anion Gap 13 (10-20) 07/15/18 05:30 BUN 4 mg/dl (7-17) L 07/15/18 05:30 Creatinine 0.6 mg/dl (0.7-1.2) L 07/15/18 05:30 Est GFR ( Amer) > 60 07/15/18 05:30 Est GFR (Non-Af Amer) > 60 07/15/18 05:30 Random Glucose 113 mg/dL (65-105) H 07/15/18 05:30 Calcium 10.0 mg/dL (8.4-10.2) 07/15/18 05:30 Thyroxine (T4) 11.5 ug/dl (5.5-11.0) H 07/13/18 06:50 Total T3 1.37 nmol/L (1.49-2.60) L 07/13/18 06:50 TSH 3rd Generation < 0.02 mIU/ML (0.46-4.68) L 07/15/18 05:30 Blood Type A POSITIVE 07/13/18 06:50 Blood Type Confirm A POSITIVE 07/13/18 08:00 Antibody Screen Negative 07/13/18 06:50 Crossmatch See Detail 07/13/18 06:50 BBK History Checked No verified bt 07/13/18 06:50 Attending/Attestation - Attestation I have personally seen and examined this patient.: Yes I have fully participated in the care of the patient.: Yes I have reviewed all pertinent clinical information, including history, physical exam and plan: Yes Notes (Text): 1. Primary OA s/p Right Knee TKR - clared by Ortho for d/c - Pain mgt - PT/OT - DVT proph- Lovenox - d/c to TCU for further Rehab 2. Depression - Pt takes Doxepin, Cyproheptadine , Trazodone and Gabapentin at home ( has been on these meds for many years), we will continue 3. HTN - cont Norvasc
--- NOTE | 2018-07-15 14:21 | CP.PCM.PN ---
Subjective - Date & Time of Evaluation Date of Evaluation: 07/15/18 Time of Evaluation: 10:30 - Subjective Subjective: Patient seen and examined OOB to chair. Pain better controlled but moderate at this time. No new complaints. Objective - Vital Signs/Intake and Output Vital Signs (last 24 hours): Temp Pulse Resp BP Pulse Ox 98.8 F 95 H 20 156/99 H 99 07/15/18 04:00 07/15/18 11:24 07/15/18 04:00 07/15/18 11:24 07/15/18 04:00 - Medications Medications: Current Medications Amlodipine Besylate (Norvasc) 5 mg PO DAILY [facility] Last Admin: 07/15/18 11:24 Dose: 5 mg Cyproheptadine HCl (Periactin) 4 mg PO TID [facility] Last Admin: 07/15/18 13:12 Dose: 4 mg Docusate Sodium (Colace) 100 mg PO BID [facility] Last Admin: 07/15/18 08:57 Dose: 100 mg Doxepin HCl (Sinequan) 150 mg PO DAILY [facility] Last Admin: 07/15/18 09:00 Dose: 150 mg Enoxaparin Sodium (Lovenox) 40 mg SC DAILY [facility]; Protocol Last Admin: 07/15/18 08:59 Dose: 40 mg Ferrous Sulfate (Feosol) 325 mg PO TID [facility] Last Admin: 07/15/18 13:12 Dose: 325 mg Folic Acid (Folic Acid) 1 mg PO DAILY [facility] Last Admin: 07/15/18 08:58 Dose: 1 mg Gabapentin (Neurontin) 600 mg PO BID [facility] Last Admin: 07/15/18 08:59 Dose: 600 mg Ketorolac Tromethamine (Toradol) 30 mg IVP Q6 PRN PRN Reason: Pain, moderate (4-7) Last Admin: 07/15/18 10:55 Dose: 30 mg Ondansetron HCl (Zofran Inj) 4 mg IVP Q4 PRN PRN Reason: Nausea/Vomiting Oxycodone/Acetaminophen (Percocet 5/325 Mg Tab) 2 tab PO Q4 PRN PRN Reason: Pain, severe (8-10) Stop: 07/18/18 10:44 Oxycodone/Acetaminophen (Percocet 5/325 Mg Tab) 1 tab PO Q4 PRN PRN Reason: Pain, moderate (4-7) Stop: 07/18/18 10:44 Trazodone HCl (Desyrel) 100 mg PO HS [facility] Last Admin: 07/14/18 21:22 Dose: 100 mg - Labs Labs: 07/15/18 05:30 07/15/18 05:30 - Extremities Exam Additional comments: R knee: Dressings CDI, Aquacel CDI Incision CDI with wanda compartments soft sensation intact SP/DP/TN motor intact EHL/FHL/TA/G pedal pulses intact calves soft NT b/l Assessment and Plan (1) Osteoarthritis of right knee Assessment & Plan: POD# 2 s/p R TKA -pain management consult appreciated, transition to PO meds -dressings changed -PT/OT WBAT -DVT ppx -orthopedically stable for d/c to TCU today -above d/w Dr. Rodriguez in agreement Status: Acute
[2018-07-15 16:21] VITALS: BP 120/86; RESP 18; TEMP 99.5; O2SAT 97
[2018-07-15] MEDS ORDERED: Sucralfate 1 gm/10 ml Oral Susp UD PO STA (17:34)
[2018-07-15 17:46] VITALS: PULSE 102
--- NOTE | 2018-07-16 03:40 | CON ---
DATE: 07/15/2018 HISTORY OF PRESENT ILLNESS: This is a 57-year-old female who just underwent a right total knee replacement procedure and is now being referred for evaluation of abnormal thyroid function studies. PAST MEDICAL HISTORY: History of hypertension, currently on a diuretic therapy at this time. History of diffuse osteoarthritis with severe right knee pain refractory to conservative and medical management where she underwent several sessions of physical therapy with ongoing narcotic analgesics and even intra-articular injection. She had a previous left total knee replacement some years ago. She also had a prior cholecystectomy and hysterectomy also some years ago. FAMILY HISTORY: Positive for hypertension and heart disease. SOCIAL HISTORY: The patient is a current smoker, consuming over 10 cigarettes a day. She has a supportive family otherwise with no other substance use. REVIEW OF SYSTEMS: Admits to episodic bouts of dizziness and lightheadedness with easy fatigability and tiredness and suboptimal energy level. Also admits to recent insomnia with disrupted sleep patterns. No chest pains, but admits to episodic palpitations and shortness of breath especially on exertion. Her oral intake has been variable with occasional dyspepsia and vague upper abdominal pains. No recent alterations of bowel and urinary patterns. PHYSICAL EXAMINATION: GENERAL: This is an average built female in no apparent distress. VITAL SIGNS: Blood pressure of 140/80, pulse of 100 beats per minute regular, temperature 98, respirations 20, height is 5 feet 5 inches, weight is 168 pounds. HEENT: Head normocephalic. Eyes anicteric with pink conjunctivae. Funduscopy not possible at this time. Ears, nose and throat otherwise normal. NECK: Her thyroid gland is firm and nontender with no overt thyroid nodules or bruits nor any cervical adenopathy. HEART: Hyperdynamic precordium. S1, S2. Rapid and regular. LUNGS: Clear to auscultation. ABDOMEN: Flat, soft with positive bowel sounds. EXTREMITIES: No peripheral edema. Pulses are +2 bilaterally. LABORATORY DATA: Her T4 level is 11.5 with a total T3 of 1.37 and a TSH of less than 0.02 done twice. Her chemistries, BUN of 4, sodium 138, potassium 4, chloride 104, CO2 of 25, glucose 113, and creatinine 0.6. ASSESSMENT: This is a 57-year-old female with subclinical hyperthyroidism, most likely related to underlying autoimmune thyroiditis, who just underwent a right total knee replacement procedure and is being referred now for endocrine evaluation and management. PLAN OF MANAGEMENT: As discussed with the hospitalist, we will give her a stat dose of Tapazole given as 10 mg tonight and we will add ongoing Tapazole at 10 mg p.o. t.i.d. after meals to start tomorrow morning as ordered. We will obtain a thyroid-stimulating immunoglobulin and a thyroid peroxidase and thyroglobulin antibody to confirm and/or negate the presence of underlying thyroid autoimmunity. We will obtain serial thyroid studies and titrate her dose regimen accordingly. We will also obtain serial chemistries and supplement accordingly as needed. We will consider a thyroid ultrasound once she is more clinically and orthopedically stable. We will follow and advise accordingly. Caitlyn Muñoz MD
--- NOTE | 2018-07-22 12:20 | PQF ---
PROVIDER RESPONSE TEXT: insufficiency REVIEWER QUERY TEXT: Fracture Cause Traumatic or Non-Trauma Please clarify whether the documented fracture is due to traumatic or non-traumatic cause Such as: Traumatic: -- Traumatic compression fracture -- Traumatic fracture Non-traumatic: -- Chronic fracture -- Non-traumatic compression fracture -- Insufficiency -- Spontaneous -- Pathological fracture (specify cause such as osteoporosis or malignancy) -- Stress fracture -- Wedge fracture -- Other, please specify The patient's Clinical Indicators include: History and Physical documented "small subchondral fracture along the posterior medial edge of the me dial tibio-femoral plateau." Query created by: Mackenzie Adair on 07/16/2018 9:57 AM Electronically signed by: Rocio Crane MD 07/22/2018 12:17 PM
== END 2018-07-15 22:00 | DRG 470 ==
LOC: H.OPSURG 06:09 → H.MEDSURG1 10:46
PROVIDERS: ADMIT Internal Medicine; ATTEND Internal Medicine
PROC: 3E0T3BZ Introduction of Anesthetic Agent into Peripheral Nerves and Plexi, Percutaneous Approach (ICD-10-PCS; 2018-07-13)
PROC: 3E0T3BZ Introduction of Anesthetic Agent into Peripheral Nerves and Plexi, Percutaneous Approach (ICD-10-PCS; 2018-07-13)
PROC: 0SRC0J9 Replacement of Right Knee Joint with Synthetic Substitute, Cemented, Open Approach (ICD-10-PCS; principal; 2018-07-13 07:45)
PROC: 0SBC0ZZ Excision of Right Knee Joint, Open Approach (ICD-10-PCS; 2018-07-13 07:45)
PROC: 8E0YXBZ Computer Assisted Procedure of Lower Extremity (ICD-10-PCS; 2018-07-13 07:45)
DX: M17.11 Unilateral primary osteoarthritis, right knee (principal); M87.9 Osteonecrosis, unspecified; M84.48XA Pathological fracture, other site, initial encounter for fracture; F17.200 Nicotine dependence, unspecified, uncomplicated; M65.9 Synovitis and tenosynovitis, unspecified; I10 Essential (primary) hypertension; F17.210 Nicotine dependence, cigarettes, uncomplicated; Z96.652 Presence of left artificial knee joint; Z88.0 Allergy status to penicillin; E06.3 Autoimmune thyroiditis; F32.9 Major depressive disorder, single episode, unspecified; E05.90 Thyrotoxicosis, unspecified without thyrotoxic crisis or storm

== ENCOUNTER 2018-07-15 13:19 | Inpatient (IN) | payer OTHER ==
[2018-07-03 09:21] VITALS: BMI 27.9
[2018-07-15 22:00] VITALS: RESP 20
--- NOTE | 2018-07-16 06:51 | CP.PCM.HP ---
<Keron Foreman - Last Filed: 07/16/18 13:23> History of Present Illness - History of Present Illness History of Present Illness: 57 years old female with hx of osteoarthritis of the knees with partial left knee replacement and painful right knee was admitted under hospitalist service and taken to the OR for a R total knee replacement with Dr. Rodriguez as she had failed conservative treatment for the osteoarthtitis of the right knee with Intraarticular injections, analgesics and she decided on surgical management. Patient seen and evaluated in TCU at bedside POD 3 R TKR. She was discharged and admitted to the TCU for pain management, PT, and deconditioning. She denies N/V/F/C/SOB/CP today. PMH: Oteoarthritis PSH: Hysterectomy; Cholecystectomy; Partial left knee replacement; SH: Heavy smoker; No drugs; No Alcohol FH: States: No Known family Hx Allergies:Ampicillin Medication: reviewed Present on Admission - Present on Admission Any Indicators Present on Admission: No Past Patient History - Past Medical History & Family History Past Medical History?: No - Past Social History Smoking Status: Current Some Days Smoker - CARDIAC Hx Cardiac Disorders: No - PULMONARY Hx Respiratory Disorders: No - NEUROLOGICAL Hx Neurological Disorder: No - HEENT Hx HEENT Problems: No - RENAL Hx Chronic Kidney Disease: No - ENDOCRINE/METABOLIC Hx Endocrine Disorders: No - HEMATOLOGICAL/ONCOLOGICAL Hx Blood Disorders: No - INTEGUMENTARY Hx Dermatological Problems: No - MUSCULOSKELETAL/RHEUMATOLOGICAL Hx Musculoskeletal Disorders: Yes Hx Arthritis: Yes (knees) Hx Falls: No - GASTROINTESTINAL Hx Gastrointestinal Disorders: No - GENITOURINARY/GYNECOLOGICAL Hx Genitourinary Disorders: No - PSYCHIATRIC Hx Post Traumatic Stress Disorder: Yes Hx Substance Use: No - SURGICAL HISTORY Hx Surgeries: Yes Hx Cholecystectomy: Yes Hx Hysterectomy: Yes Hx Orthopedic Surgery: Yes (partial implant on left knee) - ANESTHESIA Hx Anesthesia: Yes Hx Anesthesia Reactions: No Meds Allergies/Adverse Reactions: Allergies Allergy/AdvReac Type Severity Reaction Status Date / Time ampicillin Allergy RASH Verified 07/03/18 09:27 Physical Exam - Constitutional Appears: Well, Non-toxic, No Acute Distress - Head Exam Head Exam: ATRAUMATIC, NORMOCEPHALIC - Eye Exam Eye Exam: EOMI, PERRL - ENT Exam ENT Exam: Mucous Membranes Moist - Neck Exam Neck exam: Positive for: Full Rom - Respiratory Exam Respiratory Exam: Clear to Auscultation Bilateral, NORMAL BREATHING PATTERN - Cardiovascular Exam Cardiovascular Exam: REGULAR RHYTHM, +S1, +S2 - GI/Abdominal Exam GI & Abdominal Exam: Normal Bowel Sounds, Soft. absent: Tenderness - Extremities Exam Additional comments: R knee: Dressings CDI, Aquacel CDI Incision CDI with wanda compartments soft sensation intact SP/DP/TN motor intact EHL/FHL/TA/G pedal pulses intact calves soft NT b/l - Neurological Exam Neurological exam: Alert, Oriented x3 - Psychiatric Exam Psychiatric exam: Normal Affect, Normal Mood - Skin Skin Exam: Dry, Warm Results - Vital Signs Recent Vital Signs: Last Vital Signs Temp 99.9 F H 07/15/18 21:58 Pulse 100 H 07/15/18 22:32 Resp 20 07/15/18 22:32 BP 142/86 07/15/18 21:58 Pulse Ox 98 07/15/18 22:32 - Labs Result Diagrams: 07/16/18 10:27 07/16/18 10:27 Assessment & Plan - Assessment and Plan (Free Text) Assessment: 57F with pmhx of osteoarthritis and ossteonecrosis POD 3 R total knee replacement Plan: 1. Right Knee Osteoarthritis - x-ray - Small Subchonral fracture along the posterior medial edge of the medial tibio-femoral plateau with extensive subchondral edema. ( Spontaneous osteonecrosis of the knee) - postop x-ray - satisfactory postop status - Dr Rodriguez on consult for Orthopedic - POD 3 TKR - Orthopedic management - Pain management consulted - can transition to percocet 5/325 1-2 tabs po q4- 6h prn moderate to severe pain. Pt can also have IV toradol as an adjunct. - PT/OT - benefit from further skilled treatment 2. Stress Ulcer Prophylaxis - pepcid 3. DVT prophylaxis - Lovenox 4. Full code - Date & Time Date: 07/16/18 Time: 06:51 <Satish Horton D - Last Filed: 07/16/18 13:42> Results - Vital Signs Recent Vital Signs: Last Vital Signs Temp 99.2 F 07/16/18 08:31 Pulse 92 H 07/16/18 08:31 Resp 20 07/16/18 08:31 BP 132/72 07/16/18 08:31 Pulse Ox 98 12/06/18 08:31 - Labs Result Diagrams: 07/16/18 10:27 07/16/18 10:27 Labs: Laboratory Results - last 24 hr 07/16/18 07/16/18 07/16/18 10:20 10:27 10:27 WBC 12.7 H RBC 4.28 Hgb 12.5 Hct 38.1 MCV 89.0 MCH 29.1 MCHC 32.7 L RDW 15.2 H Plt Count 286 pCO2 34 L pO2 84 HCO3 26.0 ABG pH 7.47 H ABG Total CO2 25.7 ABG O2 Saturation 99.1 H ABG Base Excess 1.5 ABG Hemoglobin 14.3 ABG Carboxyhemoglobin 2.6 H POC ABG HHb (Measured) 0.9 ABG Methemoglobin 1.4 Ruddy Test Yes Hgb O2 Saturation 95.1 FiO2 21.0 Sodium 141 Potassium 4.2 Chloride 104 Carbon Dioxide 27 Anion Gap 14 BUN 17 Creatinine 0.8 Est GFR ( Amer) > 60 Est GFR (Non-Af Amer) > 60 Random Glucose 137 H Calcium 10.3 H Total Bilirubin 1.1 AST 26 ALT 24 Alkaline Phosphatase 70 Troponin I < 0.0120 Total Protein 8.0 Albumin 4.0 Globulin 4.0 H Albumin/Globulin Ratio 1.0 Attending/Attestation - Attestation I have personally seen and examined this patient.: Yes I have fully participated in the care of the patient.: Yes I have reviewed all pertinent clinical information: Yes Notes (Text): 07/16/18 13:41 Patient seen and examined with resident. Case discussed and agreed with asses sment and plan of management.
[2018-07-16] MEDS ORDERED: DOXEPIN HCL 150 MG PO SCH (09:00)
[2018-07-16] MEDS ORDERED: Patient's Own Med (Ranitidine Hcl [Acid Reducer] 150 mg) PO SCH (09:00)
[2018-07-16] MEDS: hydroCHLOROthiazide-Triamterene 25 mg-37.5 mg Cap UD PO SCH (09:00)
[2018-07-16] MEDS: Enoxaparin 40 mg Syringe SC SCH (09:28)
--- NOTE | 2018-07-16 09:32 | CP.PCM.PN ---
Subjective - Date & Time of Evaluation Date of Evaluation: 07/16/18 Time of Evaluation: 08:00 - Subjective Subjective: Patient seen and examined at bedside. In moderate pain however, did not take pain meds due to nausea. No acute events overnight. Denies CP/SOB/fever/CASTANEDA. Objective - Vital Signs/Intake and Output Vital Signs (last 24 hours): Temp Pulse Resp BP Pulse Ox 99.2 F 92 H 20 132/72 98 07/16/18 08:31 07/16/18 08:31 07/16/18 08:31 07/16/18 08:31 07/16/18 08:31 - Medications Medications: Current Medications Amlodipine Besylate (Norvasc) 5 mg PO DAILY [facility] Cyproheptadine HCl (Periactin) 4 mg PO TID [facility] Last Admin: 07/16/18 09:28 Dose: 4 mg Docusate Sodium (Colace) 100 mg PO BID [facility] Last Admin: 07/16/18 09:29 Dose: Not Given Doxepin HCl (Sinequan) 150 mg PO DAILY [facility] Enoxaparin Sodium (Lovenox) 40 mg SC DAILY [facility]; Protocol Last Admin: 07/16/18 09:28 Dose: 40 mg Famotidine (Pepcid) 20 mg PO BID [facility] Folic Acid (Folic Acid) 1 mg PO DAILY [facility] Gabapentin (Neurontin) 600 mg PO BID [facility] Ketorolac Tromethamine (Toradol) 30 mg IVP Q6 PRN PRN Reason: Pain, moderate (4-7) Ondansetron HCl (Zofran Inj) 4 mg IVP Q6 PRN PRN Reason: Nausea/Vomiting Last Admin: 07/16/18 09:25 Dose: 4 mg Oxycodone/Acetaminophen (Percocet 5/325 Mg Tab) 1 tab PO Q4 PRN PRN Reason: Pain, moderate (4-7) Stop: 07/18/18 22:08 Oxycodone/Acetaminophen (Percocet 5/325 Mg Tab) 2 tab PO Q4 PRN PRN Reason: Pain, severe (8-10) Stop: 07/18/18 22:08 Trazodone HCl (Desyrel) 100 mg PO HS [facility] Triamterene/HCTZ (Dyazide 25 Mg-37.5 Mg) 1 cap PO DAILY [facility] - Extremities Exam Additional comments: R knee: Dressings CDI compartments soft sensation intact SP/DP/TN motor intact EHL/FHL/TA/G pedal pulses intact calves soft NT b/l Assessment and Plan - Assessment and Plan (Free Text) Assessment: POD# 3 s/p R TKA -pain control as per pain management -PT/OT WBAT -DVT ppx -orthopedically stable -above d/w Dr. Rodriguez in agreement
[2018-07-16] MEDS ORDERED: Sodium Chloride 0.9% 1,000 ML IV SCH (10:00)
[2018-07-16 10:30] LABS: ABG ALLEN TEST YES; ARTERIAL BLOOD GAS HEMOGLOBIN 14.3 g/dL (11.7-17.4); ARTERIAL BLOOD GAS O2 SAT 99.1 % (95-98); ARTERIAL BLOOD GAS PCO2 34 mm/Hg (35-45); ARTERIAL BLOOD GAS PH 7.47 (7.35-7.45); ARTERIAL BLOOD GAS PO2 84 mm/Hg (80-100); ARTERIAL BLOOD GAS TCO2 25.7 mmol/L (22-28)
[2018-07-16 10:39] LABS: HEMOGLOBIN 12.5 g/dL (12.0-16.0); MEAN CORPUSCULAR HEMOGLOBIN 29.1 pg (27.0-31.0); MEAN CORPUSCULAR HGB CONC 32.7 g/dL (33.0-37.0); RBC 4.28 Mil/uL (3.80-5.20); RED CELL DISTRIBUTION WIDTH 15.2 % (11.5-14.5); WHITE BLOOD COUNT 12.7 K/uL (4.8-10.8)
[2018-07-16 10:59] LABS: ALT/SGPT 24 U/L (9-52); AST/SGOT 26 U/L (14-36); BLOOD UREA NITROGEN 17 mg/dl (7-17); CALCIUM 10.3 mg/dL (8.4-10.2); GFR NON-AFRICAN AMERICAN > 60
--- NOTE | 2018-07-16 11:31 | CP.PCM.CON ---
History of Present Illness - History of Present Illness History of Present Illness: THE PATIENT IS A 57 YEAR OLD FEMALE WHO HAD A TOTAL RIGHT KNEE REPLACEMENT 3 DAYS AGO. SHE ALSO HAS A HISTORY OF HYPERTENSION. SHE STATES THAT SHE HAS BEEN NAUSEOUS SINCE SURGERY AND NOT EATING OR DRINKING MUCH. THIS MORNING SHE GOT OUT OF BED AND FELT DIZZY. THE NURSE STATED THAT SHE WAS TACHYCARDIC UP TO 126 BPM. AN EKG WAS DONE AND SHOWED SINUS TACHYCARDIC AT RATE OF 16 BPM. SHE DENIES CHEST PAIN, PALPITATIONS OR SOB. SHE DENIES ANY OTHER MEDICAL PROBLEMS. Past Patient History - Past Medical History & Family History Past Medical History?: No - Past Social History Smoking Status: Current Some Days Smoker - CARDIAC Hx Cardiac Disorders: No - PULMONARY Hx Respiratory Disorders: No - NEUROLOGICAL Hx Neurological Disorder: No - HEENT Hx HEENT Problems: No - RENAL Hx Chronic Kidney Disease: No - ENDOCRINE/METABOLIC Hx Endocrine Disorders: No - HEMATOLOGICAL/ONCOLOGICAL Hx Blood Disorders: No - INTEGUMENTARY Hx Dermatological Problems: No - MUSCULOSKELETAL/RHEUMATOLOGICAL Hx Musculoskeletal Disorders: Yes Hx Arthritis: Yes (knees) Hx Falls: No - GASTROINTESTINAL Hx Gastrointestinal Disorders: No - GENITOURINARY/GYNECOLOGICAL Hx Genitourinary Disorders: No - PSYCHIATRIC Hx Post Traumatic Stress Disorder: Yes Hx Substance Use: No - SURGICAL HISTORY Hx Surgeries: Yes Hx Cholecystectomy: Yes Hx Hysterectomy: Yes Hx Orthopedic Surgery: Yes (partial implant on left knee) - ANESTHESIA Hx Anesthesia: Yes Hx Anesthesia Reactions: No Meds Allergies/Adverse Reactions: Allergies Allergy/AdvReac Type Severity Reaction Status Date / Time ampicillin Allergy RASH Verified 07/03/18 09:27 - Medications Medications: Current Medications Amlodipine Besylate (Norvasc) 5 mg PO DAILY [facility] Last Admin: 07/16/18 09:00 Dose: Not Given Cyproheptadine HCl (Periactin) 4 mg PO TID [facility] Last Admin: 07/16/18 09:00 Dose: Not Given Docusate Sodium (Colace) 100 mg PO BID [facility] Last Admin: 07/16/18 09:29 Dose: Not Given Doxepin HCl (Sinequan) 150 mg PO DAILY [facility] Last Admin: 07/16/18 09:00 Dose: Not Given Enoxaparin Sodium (Lovenox) 40 mg SC DAILY [facility]; Protocol Last Admin: 07/16/18 09:28 Dose: 40 mg Famotidine (Pepcid) 20 mg PO BID [facility] Last Admin: 07/16/18 09:00 Dose: Not Given Folic Acid (Folic Acid) 1 mg PO DAILY [facility] Last Admin: 07/16/18 09:00 Dose: Not Given Gabapentin (Neurontin) 600 mg PO BID [facility] Last Admin: 07/16/18 09:00 Dose: Not Given Sodium Chloride (Sodium Chloride 0.9%) 1,000 mls @ 200 mls/hr IV .Q5H [facility] Stop: 07/17/18 09:57 Last Admin: 07/16/18 10:44 Dose: 200 mls/hr Ketorolac Tromethamine (Toradol) 30 mg IVP Q6 PRN PRN Reason: Pain, moderate (4-7) Ondansetron HCl (Zofran Inj) 4 mg IVP Q6 PRN PRN Reason: Nausea/Vomiting Last Admin: 07/16/18 09:25 Dose: 4 mg Oxycodone/Acetaminophen (Percocet 5/325 Mg Tab) 1 tab PO Q4 PRN PRN Reason: Pain, moderate (4-7) Stop: 07/18/18 22:08 Oxycodone/Acetaminophen (Percocet 5/325 Mg Tab) 2 tab PO Q4 PRN PRN Reason: Pain, severe (8-10) Stop: 07/18/18 22:08 Trazodone HCl (Desyrel) 100 mg PO [facility] Triamterene/HCTZ (Dyazide 25 Mg-37.5 Mg) 1 cap PO DAILY [facility] Last Admin: 07/16/18 09:00 Dose: Not Given Physical Exam - Respiratory Exam Respiratory Exam: Clear to Auscultation Bilateral - Cardiovascular Exam Cardiovascular Exam: Tachycardia, REGULAR RHYTHM, +S1, +S2 - Additional Findings Additional findings: EKG ST, 116 TSH VERY LOW X 2, T4 ELEVATED H/H 1238 ABGS WITH PO2 OF 84 Results - Vital Signs Recent Vital Signs: Last Vital Signs Temp 99.2 F 07/16/18 08:31 Pulse 92 H 07/16/18 08:31 Resp 20 07/16/18 08:31 BP 132/72 07/16/18 08:31 Pulse Ox 98 07/16/18 08:31 - Labs Result Diagrams: 07/16/18 10:27 07/16/18 10:27 Labs: Laboratory Results - last 24 hr 07/16/18 07/16/18 07/16/18 10:20 10:27 10:27 WBC 12.7 H RBC 4.28 Hgb 12.5 Hct 38.1 MCV 89.0 MCH 29.1 MCHC 32.7 L RDW 15.2 H Plt Count 286 pCO2 34 L pO2 84 HCO3 26.0 ABG pH 7.47 H ABG Total CO2 25.7 ABG O2 Saturation 99.1 H ABG Base Excess 1.5 ABG Hemoglobin 14.3 ABG Carboxyhemoglobin 2.6 H POC ABG HHb (Measured) 0.9 ABG Methemoglobin 1.4 Ruddy Test Yes Hgb O2 Saturation 95.1 FiO2 21.0 Sodium 141 Potassium 4.2 Chloride 104 Carbon Dioxide 27 Anion Gap 14 BUN 17 Creatinine 0.8 Est GFR ( Amer) > 60 Est GFR (Non-Af Amer) > 60 Random Glucose 137 H Calcium 10.3 H Total Bilirubin 1.1 AST 26 ALT 24 Alkaline Phosphatase 70 Troponin I < 0.0120 Total Protein 8.0 Albumin 4.0 Globulin 4.0 H Albumin/Globulin Ratio 1.0 Assessment & Plan - Assessment and Plan (Free Text) Assessment: SINUS TACHTCARDIA POSSIBLY FROM DEHYDRATION WITH SINUS TACYCARDIA AND A PO2 OF 84 IN A-POST OP PATIENT, THE POSSIBILITY OF A PE MUST BE ENTERTAINED HYPERTHYROIDISM S/P RT TKR Plan: PATIENT STARTED ON IV FLUIDS AND LOVENOX ENDOCRINOLOGY CONSULT CT ANGIO RECOMMENDED TO ASSESS FOR A POSSIBLE PE PATIENT DISCUSSED WITH HOSPITALIST AND NURSE
--- NOTE | 2018-07-16 11:51 | RAD ---
Date of service: 07/16/2018 PROCEDURE: CHEST RADIOGRAPH, 1 VIEW HISTORY: md COMPARISON: None available. FINDINGS: LUNGS: Clear. PLEURA: No pneumothorax or pleural fluid seen. CARDIOVASCULAR: No aortic atherosclerotic calcification present. Normal. OSSEOUS STRUCTURES: No significant abnormalities. VISUALIZED UPPER ABDOMEN: Normal. OTHER FINDINGS: None. IMPRESSION: No active disease.
--- NOTE | 2018-07-16 15:09 | PN ---
DATE: 07/16/2018 LOCATION: Room #706, [facility]. SUBJECTIVE: This is a 57-year-old female with diffuse osteoarthritis and underwent a right total knee replacement with his prior admission and is now being followed closely also for recent evaluation and diagnosis of overt hyperthyroidism as noted thereof. Her chemistry showed a BUN of 17, sodium 141, potassium 4.2, chloride 104, CO2 of 27, glucose 137 and creatinine 0.8. Her calcium level is 10.3. Her latest thyroxine values showed a T4 of 11.5 with a TSH of less than 0.02 and a total T3 of 1.37. ASSESSMENT: This is a 57-year-old female with overt thyrotoxicosis of fairly early onset and evaluation with hyperthyroidism noted both historically, clinically and biochemically with supervening hyperadrenergic manifestations and also constitutional symptoms of easy fatigability and tiredness as noted thereof. PLAN: Plan of management, we will resume her Tapazole given as 10 mg p.o. t.i.d. after meals to start today as ordered. We will obtain serial chemistries and supplement accordingly needed. We will also repeat the thyroid comprehensive studies with total and free T4 and TSH and a thyroid stimulating immunoglobulin and thyroid antibodies thereof. We will obtain serial chemistry and supplement accordingly as needed. We will follow. Caitlyn Muñoz MD
[2018-07-16] MEDS: Oxycodone/Acetaminophen 5/325 mg Tab PO PRN (16:57)
--- NOTE | 2018-07-16 19:00 | CARD ---
APPROVED REPORT Date of service: 07/16/2018 EKG Measurement Heart [id number] <Conclusion> Sinus tachycardia Right atrial enlargement Borderline ECG
[2018-07-17] MEDS: Enoxaparin 40 mg Syringe SC SCH (09:26)
[2018-07-17] MEDS: hydroCHLOROthiazide-Triamterene 25 mg-37.5 mg Cap UD PO SCH (09:28)
[2018-07-17] MEDS: Oxycodone/Acetaminophen 5/325 mg Tab PO PRN ×2 (09:38→21:25)
--- NOTE | 2018-07-17 10:45 | CP.PCM.PN ---
Subjective - Date & Time of Evaluation Date of Evaluation: 07/17/18 Time of Evaluation: 09:00 - Subjective Subjective: NO CHEST PAIN OR SOB FEELS A LITTLE BETTER TODAY BUT STILL NAUSEOUS Objective - Vital Signs/Intake and Output Vital Signs (last 24 hours): Temp Pulse Resp BP Pulse Ox 98.4 F 100 H 20 110/73 98 07/17/18 08:00 07/17/18 08:00 07/17/18 08:00 07/17/18 08:00 07/17/18 08:00 - Medications Medications: Current Medications Cyproheptadine HCl (Periactin) 4 mg PO TID [facility] Last Admin: 07/17/18 09:30 Dose: 4 mg Docusate Sodium (Colace) 100 mg PO BID [facility] Last Admin: 07/17/18 09:27 Dose: Not Given Doxepin HCl (Sinequan) 150 mg PO DAILY [facility] Last Admin: 07/17/18 09:30 Dose: Not Given Enoxaparin Sodium (Lovenox) 40 mg SC DAILY [facility]; Protocol Last Admin: 07/17/18 09:26 Dose: 40 mg Famotidine (Pepcid) 20 mg PO BID [facility] Last Admin: 07/17/18 09:30 Dose: 20 mg Folic Acid (Folic Acid) 1 mg PO DAILY [facility] Last Admin: 07/17/18 09:28 Dose: 1 mg Gabapentin (Neurontin) 600 mg PO BID [facility] Last Admin: 07/17/18 09:29 Dose: 600 mg Ketorolac Tromethamine (Toradol) 30 mg IVP Q6 PRN PRN Reason: Pain, moderate (4-7) Last Admin: 07/16/18 13:32 Dose: 30 mg Methimazole (Tapazole) 10 mg PO TID [facility] Last Admin: 07/17/18 09:31 Dose: 10 mg Metoprolol Tartrate (Lopressor) 12.5 mg PO Q12 [facility] Ondansetron HCl (Zofran Inj) 4 mg IVP Q6 PRN PRN Reason: Nausea/Vomiting Last Admin: 07/17/18 09:21 Dose: 4 mg Oxycodone/Acetaminophen (Percocet 5/325 Mg Tab) 1 tab PO Q4 PRN PRN Reason: Pain, moderate (4-7) Stop: 07/18/18 22:08 Last Admin: 07/17/18 09:38 Dose: 1 tab Oxycodone/Acetaminophen (Percocet 5/325 Mg Tab) 2 tab PO Q4 PRN PRN Reason: Pain, severe (8-10) Stop: 07/18/18 22:08 Trazodone HCl (Desyrel) 100 mg PO HS [facility] Last Admin: 07/16/18 22:07 Dose: 100 mg - Labs Labs: 07/16/18 10:27 07/16/18 10:27 - Respiratory Exam Respiratory Exam: Clear to Ausculation Bilateral - Cardiovascular Exam Cardiovascular Exam: REGULAR RHYTHM, +S1, +S2 - Extremities Exam Additional comments: NO EDEMA OF LLE RLE WITH DRESSINGS - Additional Findings Additional findings: CT ANGIO NEGATIVE FOR PE Assessment and Plan - Assessment and Plan (Free Text) Assessment: S/P RIGHT TKR HYPERTHYROIDISM HYPERTENSION Plan: CONTINUE TAPAZOL AND LOVENOX AMLODIPINE AND TRIAMTERENE/HCTZ STOPPED SMALL DOSE OF METOPROLOL STARTED IN PLACE OF AMLODIPINE IT WILL ALSO HELP TREAT SYMPTOMS AND TACHYCARDIA FROM HYPERTHYROIDISM
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
--- NOTE | 2018-07-17 12:56 | CP.PCM.PN ---
Subjective - Date & Time of Evaluation Date of Evaluation: 07/17/18 Time of Evaluation: 12:53 - Subjective Subjective: Patient complaining of poor appetite, nausea. Denies vomiting. Denies CP/SOB/dizziness, BM yesterday. Pain controlled. Objective - Vital Signs/Intake and Output Vital Signs (last 24 hours): Temp Pulse Resp BP Pulse Ox 98.4 F 90 20 110/73 98 07/17/18 08:00 07/17/18 11:15 07/17/18 08:00 07/17/18 08:00 07/17/18 08:00 - Medications Medications: Current Medications Cyproheptadine HCl (Periactin) 4 mg PO TID [facility] Last Admin: 07/17/18 09:30 Dose: 4 mg Docusate Sodium (Colace) 100 mg PO BID [facility] Last Admin: 07/17/18 09:27 Dose: Not Given Doxepin HCl (Sinequan) 150 mg PO DAILY [facility] Last Admin: 07/17/18 09:30 Dose: Not Given Enoxaparin Sodium (Lovenox) 40 mg SC DAILY [facility]; Protocol Last Admin: 07/17/18 09:26 Dose: 40 mg Famotidine (Pepcid) 20 mg PO BID [facility] Last Admin: 07/17/18 09:30 Dose: 20 mg Folic Acid (Folic Acid) 1 mg PO DAILY [facility] Last Admin: 07/17/18 09:28 Dose: 1 mg Gabapentin (Neurontin) 600 mg PO BID [facility] Last Admin: 07/17/18 09:29 Dose: 600 mg Ketorolac Tromethamine (Toradol) 30 mg IVP Q6 PRN PRN Reason: Pain, moderate (4-7) Last Admin: 07/16/18 13:32 Dose: 30 mg Methimazole (Tapazole) 10 mg PO TID [facility] Last Admin: 07/17/18 09:31 Dose: 10 mg Metoclopramide HCl (Reglan) 5 mg PO [facility] Metoprolol Tartrate (Lopressor) 12.5 mg PO Q12 [facility] Last Admin: 07/17/18 11:15 Dose: 12.5 mg Ondansetron HCl (Zofran Inj) 4 mg IVP Q6 PRN PRN Reason: Nausea/Vomiting Last Admin: 07/17/18 09:21 Dose: 4 mg Oxycodone/Acetaminophen (Percocet 5/325 Mg Tab) 1 tab PO Q4 PRN PRN Reason: Pain, moderate (4-7) Stop: 07/18/18 22:08 Last Admin: 07/17/18 09:38 Dose: 1 tab Oxycodone/Acetaminophen (Percocet 5/325 Mg Tab) 2 tab PO Q4 PRN PRN Reason: Pain, severe (8-10) Stop: 07/18/18 22:08 Trazodone HCl (Desyrel) 100 mg PO HS [facility] Last Admin: 07/16/18 22:07 Dose: 100 mg - Labs Labs: 07/16/18 10:27 07/16/18 10:27 - Extremities Exam Additional comments: Right knee: dressing changed. Incision intact, dry, no erythema, +ROM ankel/toes sensation intact +DP/PT pulses calves sfot NT neg homans Assessment and Plan (1) Osteoarthritis of right knee Assessment & Plan: POD#4 s/p right TKR will add reglan and ensure (patient agrees to ensure) dietitian consulted PT/OT VTE proph encourage OOB orthopedically stable labs in am, check vit D d/w Dr. Rodriguez, agrees with above Status: Acute
--- NOTE | 2018-07-17 14:03 | CP.PCM.CON ---
History of Present Illness - History of Present Illness History of Present Illness: 57 year old female with Right total knee replacement, with history of OA, depression, PTSD admitted for inpatient rehab Review of Systems - Musculoskeletal Musculoskeletal: Muscle Weakness Past Patient History - Past Medical History & Family History Past Medical History?: No - Past Social History Smoking Status: Current Some Days Smoker - CARDIAC Hx Cardiac Disorders: No - PULMONARY Hx Respiratory Disorders: No - NEUROLOGICAL Hx Neurological Disorder: No - HEENT Hx HEENT Problems: No - RENAL Hx Chronic Kidney Disease: No - ENDOCRINE/METABOLIC Hx Endocrine Disorders: No - HEMATOLOGICAL/ONCOLOGICAL Hx Blood Disorders: No - INTEGUMENTARY Hx Dermatological Problems: No - MUSCULOSKELETAL/RHEUMATOLOGICAL Hx Musculoskeletal Disorders: Yes Hx Arthritis: Yes (knees) Hx Falls: No - GASTROINTESTINAL Hx Gastrointestinal Disorders: No - GENITOURINARY/GYNECOLOGICAL Hx Genitourinary Disorders: No - PSYCHIATRIC Hx Post Traumatic Stress Disorder: Yes Hx Substance Use: No - SURGICAL HISTORY Hx Surgeries: Yes Hx Cholecystectomy: Yes Hx Hysterectomy: Yes Hx Orthopedic Surgery: Yes (partial implant on left knee) - ANESTHESIA Hx Anesthesia: Yes Hx Anesthesia Reactions: No Meds Allergies/Adverse Reactions: Allergies Allergy/AdvReac Type Severity Reaction Status Date / Time ampicillin Allergy RASH Verified 07/03/18 09:27 - Medications Medications: Current Medications Cyproheptadine HCl (Periactin) 4 mg PO TID [facility] Last Admin: 07/17/18 13:02 Dose: 4 mg Docusate Sodium (Colace) 100 mg PO BID [facility] Last Admin: 07/17/18 09:27 Dose: Not Given Doxepin HCl (Sinequan) 150 mg PO DAILY [facility] Last Admin: 07/17/18 09:30 Dose: Not Given Enoxaparin Sodium (Lovenox) 40 mg SC DAILY [facility]; Protocol Last Admin: 07/17/18 09:26 Dose: 40 mg Famotidine (Pepcid) 20 mg PO BID [facility] Last Admin: 07/17/18 09:30 Dose: 20 mg Folic Acid (Folic Acid) 1 mg PO DAILY [facility] Last Admin: 07/17/18 09:28 Dose: 1 mg Gabapentin (Neurontin) 600 mg PO BID [facility] Last Admin: 07/17/18 09:29 Dose: 600 mg Ketorolac Tromethamine (Toradol) 30 mg IVP Q6 PRN PRN Reason: Pain, moderate (4-7) Last Admin: 07/16/18 13:32 Dose: 30 mg Methimazole (Tapazole) 10 mg PO TID [facility] Last Admin: 07/17/18 13:03 Dose: 10 mg Metoclopramide HCl (Reglan) 5 mg PO ACHS [facility] Metoprolol Tartrate (Lopressor) 12.5 mg PO Q12 [facility] Last Admin: 07/17/18 11:15 Dose: 12.5 mg Ondansetron HCl (Zofran Inj) 4 mg IVP Q6 PRN PRN Reason: Nausea/Vomiting Last Admin: 07/17/18 09:21 Dose: 4 mg Oxycodone/Acetaminophen (Percocet 5/325 Mg Tab) 1 tab PO Q4 PRN PRN Reason: Pain, moderate (4-7) Stop: 07/18/18 22:08 Last Admin: 07/17/18 09:38 Dose: 1 tab Oxycodone/Acetaminophen (Percocet 5/325 Mg Tab) 2 tab PO Q4 PRN PRN Reason: Pain, severe (8-10) Stop: 07/18/18 22:08 Trazodone HCl (Desyrel) 100 mg PO HS [facility] Last Admin: 07/16/18 22:07 Dose: 100 mg Physical Exam - Constitutional Appears: Well - Head Exam Head Exam: ATRAUMATIC, NORMAL INSPECTION, NORMOCEPHALIC - Eye Exam Eye Exam: EOMI, Normal appearance, PERRL Pupil Exam: NORMAL ACCOMODATION, PERRL - ENT Exam ENT Exam: Mucous Membranes Moist, Normal Exam - Neck Exam Neck exam: Positive for: Normal Inspection - Respiratory Exam Respiratory Exam: NORMAL BREATHING PATTERN - Cardiovascular Exam Cardiovascular Exam: REGULAR RHYTHM - GI/Abdominal Exam GI & Abdominal Exam: Normal Bowel Sounds - Rectal Exam Rectal Exam: NORMAL INSPECTION - Exam External exam: NORMAL EXTERNAL EXAM - Back Exam Back exam: NORMAL INSPECTION - Neurological Exam Neurological exam: Alert, CN II-XII Intact - Psychiatric Exam Psychiatric exam: Normal Affect Results - Vital Signs Recent Vital Signs: Last Vital Signs Temp 98.4 F 07/17/18 08:00 Pulse 90 07/17/18 11:15 Resp 20 07/17/18 08:00 BP 110/73 07/17/18 08:00 Pulse Ox 98 07/17/18 08:00 - Labs Result Diagrams: 07/16/18 10:27 07/16/18 10:27 Assessment & Plan (1) Osteoarthritis of right knee Assessment and Plan: Right total knee replacement for range of motion,strengthening transfers and gait training, physical, occupational therapy program . thank you for the referral Status: Acute
--- NOTE | 2018-07-17 14:08 | CP.PCM.PN ---
Subjective - Date & Time of Evaluation Date of Evaluation: 07/17/18 Time of Evaluation: 12:00 - Subjective Subjective: patient is complaining of nausea no other complaints at present Objective - Vital Signs/Intake and Output Vital Signs (last 24 hours): Temp Pulse Resp BP Pulse Ox 98.4 F 90 20 110/73 98 07/17/18 08:00 07/17/18 11:15 07/17/18 08:00 07/17/18 08:00 07/17/18 08:00 - Medications Medications: Current Medications Cyproheptadine HCl (Periactin) 4 mg PO TID [facility] Last Admin: 07/17/18 13:02 Dose: 4 mg Docusate Sodium (Colace) 100 mg PO BID [facility] Last Admin: 07/17/18 09:27 Dose: Not Given Doxepin HCl (Sinequan) 150 mg PO DAILY [facility] Last Admin: 07/17/18 09:30 Dose: Not Given Enoxaparin Sodium (Lovenox) 40 mg SC DAILY [facility]; Protocol Last Admin: 07/17/18 09:26 Dose: 40 mg Famotidine (Pepcid) 20 mg PO BID [facility] Last Admin: 07/17/18 09:30 Dose: 20 mg Folic Acid (Folic Acid) 1 mg PO DAILY [facility] Last Admin: 07/17/18 09:28 Dose: 1 mg Gabapentin (Neurontin) 600 mg PO BID [facility] Last Admin: 07/17/18 09:29 Dose: 600 mg Ketorolac Tromethamine (Toradol) 30 mg IVP Q6 PRN PRN Reason: Pain, moderate (4-7) Last Admin: 07/16/18 13:32 Dose: 30 mg Methimazole (Tapazole) 10 mg PO TID [facility] Last Admin: 07/17/18 13:03 Dose: 10 mg Metoclopramide HCl (Reglan) 5 mg PO [facility] Metoprolol Tartrate (Lopressor) 12.5 mg PO Q12 [facility] Last Admin: 07/17/18 11:15 Dose: 12.5 mg Ondansetron HCl (Zofran Inj) 4 mg IVP Q6 PRN PRN Reason: Nausea/Vomiting Last Admin: 07/17/18 09:21 Dose: 4 mg Oxycodone/Acetaminophen (Percocet 5/325 Mg Tab) 1 tab PO Q4 PRN PRN Reason: Pain, moderate (4-7) Stop: 07/18/18 22:08 Last Admin: 07/17/18 09:38 Dose: 1 tab Oxycodone/Acetaminophen (Percocet 5/325 Mg Tab) 2 tab PO Q4 PRN PRN Reason: Pain, severe (8-10) Stop: 07/18/18 22:08 Trazodone HCl (Desyrel) 100 mg PO HS [facility] Last Admin: 07/16/18 22:07 Dose: 100 mg - Labs Labs: 07/16/18 10:27 07/16/18 10:27 - Constitutional Appears: Well - Head Exam Head Exam: ATRAUMATIC, NORMAL INSPECTION, NORMOCEPHALIC - Eye Exam Eye Exam: EOMI, Normal appearance, PERRL Pupil Exam: NORMAL ACCOMODATION - ENT Exam ENT Exam: Mucous Membranes Moist, Normal Exam - Neck Exam Neck Exam: Normal Inspection - Respiratory Exam Respiratory Exam: Chest Wall Tenderness, Clear to Ausculation Bilateral, NORMAL BREATHING PATTERN - Cardiovascular Exam Cardiovascular Exam: REGULAR RHYTHM - GI/Abdominal Exam GI & Abdominal Exam: Soft, Normal Bowel Sounds - Rectal Exam Rectal Exam: NORMAL INSPECTION - Exam External exam: NORMAL EXTERNAL EXAM - Extremities Exam Extremities Exam: Full ROM, Normal Capillary Refill, Normal Inspection - Back Exam Back Exam: NORMAL INSPECTION - Neurological Exam Neurological Exam: Alert, Awake Neuro motor strength exam: Right Lower Extremity: 3 - Psychiatric Exam Psychiatric exam: Normal Affect - Skin Skin Exam: Dry, Intact Assessment and Plan (1) Osteoarthritis of right knee Assessment & Plan: Right knee replacement, plan for physical, occupational therapy equipment evaluation after discharge plan for outpatient therapy Status: Acute
--- NOTE | 2018-07-17 20:14 | PN ---
DATE: 07/17/2018 ENDOCRINOLOGY FOLLOWUP NOTE LOCATION: Room 706. SUBJECTIVE: This is a 57-year-old female with recent right total knee replacement, currently undergoing subacute therapy at this time and is being followed closely also for metabolic management because of recent evaluation for hyperthyroidism. She is tolerating the medications daily well as given. LABORATORY DATA: Her latest chemistry showed a BUN of 17, sodium 141, potassium 4.2, chloride 104, CO2 of 27, glucose 137, and creatinine 0.8. Her latest thyroid study showed a T4 of 11.5 with a TSH of less than 0.02 as noted. ASSESSMENT: This is a 57-year-old female with overt thyrotoxicosis noted both historically, clinically and biochemically with hyperadrenergic and constitutional manifestations related to the excess thyroid hormones as noted. PLAN OF MANAGEMENT: As discussed lengthily with the patient at bedside, we will continue her Tapazole at a high dose of 10 mg p.o. t.i.d. only for inpatient medical and thyroid management. We expect this to improve remarkably both clinically and metabolically and so when discharge, she can be given a lower maintenance dose accordingly. We will obtain a thyroid stimulating immunoglobulin and a thyroid peroxidase antibody to confirm and/or indicate the presence of underlying thyroid autoimmunity. We will obtain a thyroid ultrasound when she is more clinically stable at this time as she has been only allowed bedrest with no weightbearing at this point. We will follow. Caitlyn Muñoz MD
[2018-07-18 06:51] LABS: BASO % 0.4 % (0.0-2.0); EOS # 0.5 K/uL (0.0-0.7); EOS % 4.1 % (0.0-4.0); HEMOGLOBIN 11.3 g/dL (12.0-16.0); LYMPH # 2.5 K/uL (1.0-4.3); LYMPH % 19.7 % (20.0-40.0); MEAN CELL VOLUME 86.8 fl (81.0-99.0); MEAN CORPUSCULAR HEMOGLOBIN 28.8 pg (27.0-31.0); MEAN CORPUSCULAR HGB CONC 33.2 g/dL (33.0-37.0); MEAN PLATELET VOLUME 8.8 fl (7.2-11.7); MONO % 7.9 % (0.0-10.0); NEUT # 8.7 K/uL (1.8-7.0); NEUT % 67.9 % (50.0-75.0); NRBC % 0.4 % (0.0-0.0); RBC 3.93 Mil/uL (3.80-5.20); RED CELL DISTRIBUTION WIDTH 14.7 % (11.5-14.5); WHITE BLOOD COUNT 12.7 K/uL (4.8-10.8)
[2018-07-18 06:54] LABS: ALBUMIN 3.8 g/dL (3.5-5.0); ALT/SGPT 25 U/L (9-52); AST/SGOT 26 U/L (14-36); BLOOD UREA NITROGEN 19 mg/dl (7-17); CALCIUM 10.5 mg/dL (8.4-10.2); GFR NON-AFRICAN AMERICAN > 60
[2018-07-18] MEDS: Enoxaparin 40 mg Syringe SC SCH (08:36)
--- NOTE | 2018-07-18 12:53 | PN ---
DATE: 07/18/2018 LOCATION: Room 706, [facility]. SUBJECTIVE: This is a 57-year-old female with recent right total knee replacement and with ongoing physical and occupational therapy at [facility] as noted and is being followed closely also for metabolic management. She remains hyperthyroid both clinically, historically and biochemically as noted and most likely related to underlying autoimmune thyroiditis. LABORATORY DATA: Her chemistry showed a BUN 19, sodium 140, potassium 3.9, chloride 103, CO2 of 27, glucose 126 and creatinine 0.8 with a calcium of 10.5. Her calcium levels have been on the upper limit of normal as noted since admission. ASSESSMENT: This is a 57-year-old female with overt hyperthyroidism noted both historically, clinically and biochemically, most likely related to underlying autoimmune thyroiditis, i.e., Graves disease with underlying diffuse toxic goiter with no compressive symptoms as noted. She also has recent right total knee replacement from underlying diffuse osteoarthritis and is currently undergoing physical and occupational therapy at this time. Moreover, the persistent mild hypercalcemia has been noted and is also quite common in patients with hyperthyroidism from the increased bone resorption thereof. However, we have to exclude any concomitant autoimmune primary hyperparathyroidism and only lab testing will confirm or negate this possibility. PLAN OF MANAGEMENT: We will obtain repeat thyroid studies tomorrow morning and observe her metabolic profile and adjust her Tapazole dose accordingly. For now, we will continue the Tapazole given as 10 mg p.o. t.i.d. after meals as ordered. We will also obtain thyroid antibodies which will confirm and/or negate the presence of underlying thyroid autoimmunity. We will also do a parathyroid hormone intact level with a serum magnesium and phosphorus to confirm and/or negate the possibility of underlying primary hyperparathyroidism. We will follow. Caitlyn Muñoz MD
--- NOTE | 2018-07-18 14:12 | CP.PCM.PN ---
Subjective - Date & Time of Evaluation Date of Evaluation: 07/18/18 Time of Evaluation: 13:45 - Subjective Subjective: s- PT OOB AND COMFORTABLE/ PAIN WELL CONTROLLED (PT EX SUBSTANCE ABUSER) Objective - Vital Signs/Intake and Output Vital Signs (last 24 hours): Temp Pulse Resp BP Pulse Ox 100.0 F H 80 20 122/81 97 07/18/18 08:04 07/18/18 08:36 07/18/18 08:04 07/18/18 08:36 07/18/18 08:04 - Medications Medications: Current Medications Cyproheptadine HCl (Periactin) 4 mg PO TID [facility] Last Admin: 07/18/18 12:15 Dose: Not Given Docusate Sodium (Colace) 100 mg PO BID [facility] Last Admin: 07/18/18 08:36 Dose: Not Given Doxepin HCl (Sinequan) 150 mg PO DAILY [facility] Last Admin: 07/18/18 08:38 Dose: 150 mg Enoxaparin Sodium (Lovenox) 40 mg SC DAILY [facility]; Protocol Last Admin: 07/18/18 08:36 Dose: 40 mg Famotidine (Pepcid) 20 mg PO BID [facility] Last Admin: 07/18/18 08:39 Dose: 20 mg Folic Acid (Folic Acid) 1 mg PO DAILY [facility] Last Admin: 07/18/18 08:39 Dose: 1 mg Gabapentin (Neurontin) 600 mg PO BID [facility] Last Admin: 07/18/18 08:38 Dose: 600 mg Ketorolac Tromethamine (Toradol) 30 mg IVP Q6 PRN PRN Reason: Pain, moderate (4-7) Last Admin: 07/18/18 03:54 Dose: 30 mg Methimazole (Tapazole) 10 mg PO TID [facility] Last Admin: 07/18/18 12:17 Dose: 10 mg Metoclopramide HCl (Reglan) 5 mg PO ACHS [facility] Last Admin: 07/18/18 11:28 Dose: 5 mg Metoprolol Tartrate (Lopressor) 12.5 mg PO Q12 [facility] Last Admin: 07/18/18 08:36 Dose: 12.5 mg Ondansetron HCl (Zofran Inj) 4 mg IVP Q6 PRN PRN Reason: Nausea/Vomiting Last Admin: 07/18/18 01:09 Dose: 4 mg Oxycodone/Acetaminophen (Percocet 5/325 Mg Tab) 1 tab PO Q4 PRN PRN Reason: Pain, moderate (4-7) Stop: 07/18/18 22:08 Last Admin: 07/17/18 09:38 Dose: 1 tab Oxycodone/Acetaminophen (Percocet 5/325 Mg Tab) 2 tab PO Q4 PRN PRN Reason: Pain, severe (8-10) Stop: 07/18/18 22:08 Last Admin: 07/17/18 21:25 Dose: 2 tab Trazodone HCl (Desyrel) 100 mg PO HS [facility] Last Admin: 07/17/18 22:54 Dose: 100 mg - Labs Labs: 07/18/18 05:30 07/18/18 05:30 - Skin Additional comments: oBJ WOUND BENIGN PT WITH AREA OF ECCHYMOSIS MEDIALLY ORTHOPEDICALLY STABLE Assessment and Plan - Assessment and Plan (Free Text) Assessment: a- S/P l tkr ' ORTHOPEDICALLY STABLE p- [employer]IG[employer]ARING CONTINUE ACTIVE PASSIVE ROM
[2018-07-18] MEDS: Oxycodone/Acetaminophen 5/325 mg Tab PO PRN (21:05)
[2018-07-19 08:30] LABS: BASO % 0.4 % (0.0-2.0); EOS # 0.5 K/uL (0.0-0.7); EOS % 4.7 % (0.0-4.0); LYMPH # 2.2 K/uL (1.0-4.3); LYMPH % 19.6 % (20.0-40.0); MEAN CORPUSCULAR HEMOGLOBIN 29.2 pg (27.0-31.0); MEAN CORPUSCULAR HGB CONC 32.8 g/dL (33.0-37.0); MEAN PLATELET VOLUME 8.9 fl (7.2-11.7); MONO # 0.9 K/uL (0.0-0.8); MONO % 7.7 % (0.0-10.0); NEUT # 7.7 K/uL (1.8-7.0); NEUT % 67.6 % (50.0-75.0); NRBC % 0.1 % (0.0-0.0); RBC 4.1 Mil/uL (3.80-5.20); RED CELL DISTRIBUTION WIDTH 14.6 % (11.5-14.5); WHITE BLOOD COUNT 11.4 K/uL (4.8-10.8)
[2018-07-19 08:52] LABS: ALBUMIN 4.1 g/dL (3.5-5.0); ALT/SGPT 37 U/L (9-52); AST/SGOT 36 U/L (14-36); BLOOD UREA NITROGEN 19 mg/dl (7-17); CALCIUM 10.6 mg/dL (8.4-10.2); GFR NON-AFRICAN AMERICAN > 60
[2018-07-19] MEDS: Enoxaparin 40 mg Syringe SC SCH (08:58)
[2018-07-19 09:06] LABS: T4 16.6 ug/dl (5.5-11.0)
[2018-07-19] MEDS: Oxycodone/Acetaminophen 5/325 mg Tab PO PRN ×2 (10:38→23:00)
--- NOTE | 2018-07-19 15:35 | CP.PCM.PN ---
Subjective - Date & Time of Evaluation Date of Evaluation: 07/19/18 Time of Evaluation: 14:30 - Subjective Subjective: FEELS MUCH BETTER TODAY CALMER, LESS JITTERY Objective - Vital Signs/Intake and Output Vital Signs (last 24 hours): Temp Pulse Resp BP Pulse Ox 99.0 F 96 H 20 132/80 100 07/19/18 08:17 07/19/18 10:14 07/19/18 08:17 07/19/18 08:57 07/19/18 10:14 - Medications Medications: Current Medications Cyproheptadine HCl (Periactin) 4 mg PO TID [facility] Last Admin: 07/19/18 12:23 Dose: 4 mg Docusate Sodium (Colace) 100 mg PO BID [facility] Last Admin: 07/19/18 08:57 Dose: Not Given Doxepin HCl (Sinequan) 150 mg PO DAILY [facility] Last Admin: 07/19/18 09:01 Dose: 150 mg Enoxaparin Sodium (Lovenox) 40 mg SC DAILY [facility]; Protocol Last Admin: 07/19/18 08:58 Dose: 40 mg Famotidine (Pepcid) 20 mg PO BID [facility] Last Admin: 07/19/18 08:59 Dose: 20 mg Folic Acid (Folic Acid) 1 mg PO DAILY [facility] Last Admin: 07/19/18 08:57 Dose: 1 mg Gabapentin (Neurontin) 600 mg PO BID [facility] Last Admin: 07/19/18 08:59 Dose: 600 mg Ketorolac Tromethamine (Toradol) 30 mg IVP Q6 PRN PRN Reason: Pain, moderate (4-7) Last Admin: 07/19/18 15:15 Dose: 30 mg Methimazole (Tapazole) 20 mg PO TID [facility] Last Admin: 07/19/18 12:24 Dose: 20 mg Metoclopramide HCl (Reglan) 5 mg PO ACHS [facility] Last Admin: 07/19/18 12:18 Dose: Not Given Metoprolol Tartrate (Lopressor) 12.5 mg PO Q12 [facility] Last Admin: 07/19/18 08:57 Dose: 12.5 mg Ondansetron HCl (Zofran Inj) 4 mg IVP Q6 PRN PRN Reason: Nausea/Vomiting Last Admin: 07/18/18 01:09 Dose: 4 mg Oxycodone/Acetaminophen (Percocet 5/325 Mg Tab) 1 tab PO Q6 PRN PRN Reason: Pain, moderate (4-7) Stop: 07/21/18 23:01 Last Admin: 07/19/18 10:38 Dose: 1 tab Oxycodone/Acetaminophen (Percocet 5/325 Mg Tab) 2 tab PO Q6 PRN PRN Reason: Pain, severe (8-10) Stop: 07/21/18 23:01 Trazodone HCl (Desyrel) 100 mg PO HS [facility] Last Admin: 07/18/18 21:03 Dose: 100 mg - Labs Labs: 07/19/18 07:30 07/19/18 07:30 - Respiratory Exam Respiratory Exam: Clear to Ausculation Bilateral - Cardiovascular Exam Cardiovascular Exam: REGULAR RHYTHM, +S1, +S2 - Additional Findings Additional findings: ENDOCRINOLOGY AND ORTHO NOTES REVIEWED Assessment and Plan - Assessment and Plan (Free Text) Assessment: S/P RIGHT TKR HYPERTENSION HYPERTHYROIDISM Plan: CONTINUE METOPROL, TAPAZOLE AND LOVENOX
--- NOTE | 2018-07-20 08:42 | PN ---
DATE: 07/19/2018 ENDO FOLLOWUP LOCATION: In room 706. SUBJECTIVE: This is a 57-year-old female with recent overt thyrotoxicosis incidentally diagnosed because of hyperadrenergic and constitutional manifestations presenting here with an elective procedure for a right total knee replacement and currently undergoing physical and occupational therapy here at the and is being followed closely also for metabolic management. LABORATORY DATA: Her repeat thyroid studies today showed a T4 or thyroxine level which is still quite elevated and even higher than the initial admission levels of 16.6 mcg/dL and a TSH of less than 0.02. Her free T4 is 2.57. Her chemistry showed a BUN of 19, sodium 141, potassium 3.9, chloride 103, CO2 of 27, glucose 129 and creatinine 0.7. Her calcium levels remain elevated at 10.6 which is also part of the hyperthyroid condition with increased bone resorption thereof. ASSESSMENT: This is a 57-year-old female with overt thyrotoxicosis, presenting here with moderate hyperthyroidism noted both historically, clinically and biochemically most likely related to underlying autoimmune thyroiditis. She underwent a recent right total knee replacement as noted. PLAN OF MANAGEMENT: We will intensify and titrate her Tapazole dosing to a higher regimen and we will increase Tapazole to 20 mg t.i.d. as noted. We will await the results of the thyroid stimulating immunoglobulin which will confirm and/or indicate the presence of underlying Graves disease or autoimmune thyroiditis. We will observe. We will obtain serial chemistries and supplement accordingly as needed. We will follow. Caitlyn Muñoz MD
[2018-07-20] MEDS: Enoxaparin 40 mg Syringe SC SCH (08:48)
[2018-07-20] MEDS: Oxycodone/Acetaminophen 5/325 mg Tab PO PRN ×2 (11:03→17:37)
[2018-07-20] MEDS ORDERED: Ergocalciferol 50,000 Intl Units Cap PO ONE (13:10)
--- NOTE | 2018-07-20 13:13 | CP.PCM.PN ---
Subjective - Date & Time of Evaluation Date of Evaluation: 07/20/18 Time of Evaluation: 10:00 - Subjective Subjective: Patient still complaining of mild nausea and poor appetite. Pain improving in knee. No new complaints. Objective - Vital Signs/Intake and Output Vital Signs (last 24 hours): Temp Pulse Resp BP Pulse Ox 97.9 F 100 H 20 102/64 98 07/20/18 07:53 07/20/18 08:47 07/20/18 07:53 07/20/18 08:47 07/20/18 07:53 - Medications Medications: Current Medications Cyproheptadine HCl (Periactin) 4 mg PO TID [facility] Last Admin: 07/20/18 13:00 Dose: 4 mg Docusate Sodium (Colace) 100 mg PO BID [facility] Last Admin: 07/20/18 08:47 Dose: Not Given Doxepin HCl (Sinequan) 150 mg PO DAILY [facility] Last Admin: 07/20/18 08:50 Dose: 150 mg Enoxaparin Sodium (Lovenox) 40 mg SC DAILY [facility]; Protocol Last Admin: 07/20/18 08:48 Dose: 40 mg Ergocalciferol (Drisdol 50,000 Intl Units Cap) 1 cap PO ONCE ONE Stop: 07/20/18 13:11 Famotidine (Pepcid) 20 mg PO BID [facility] Last Admin: 07/20/18 08:49 Dose: 20 mg Folic Acid (Folic Acid) 1 mg PO DAILY [facility] Last Admin: 07/20/18 08:47 Dose: 1 mg Gabapentin (Neurontin) 600 mg PO BID [facility] Last Admin: 07/20/18 08:49 Dose: 600 mg Ketorolac Tromethamine (Toradol) 30 mg IVP Q6 PRN PRN Reason: Pain, moderate (4-7) Last Admin: 07/20/18 07:12 Dose: 30 mg Methimazole (Tapazole) 20 mg PO TID [facility] Last Admin: 07/20/18 13:00 Dose: 20 mg Metoclopramide HCl (Reglan) 5 mg PO ACHS [facility] Last Admin: 07/20/18 13:00 Dose: 5 mg Metoprolol Tartrate (Lopressor) 12.5 mg PO Q12 [facility] Last Admin: 07/20/18 08:47 Dose: 12.5 mg Ondansetron HCl (Zofran Inj) 4 mg IVP Q6 PRN PRN Reason: Nausea/Vomiting Last Admin: 07/18/18 01:09 Dose: 4 mg Oxycodone/Acetaminophen (Percocet 5/325 Mg Tab) 1 tab PO Q6 PRN PRN Reason: Pain, moderate (4-7) Stop: 07/21/18 23:01 Last Admin: 07/20/18 11:03 Dose: 1 tab Oxycodone/Acetaminophen (Percocet 5/325 Mg Tab) 2 tab PO Q6 PRN PRN Reason: Pain, severe (8-10) Stop: 07/21/18 23:01 Trazodone HCl (Desyrel) 100 mg PO HS [facility] Last Admin: 07/19/18 22:20 Dose: 100 mg - Labs Labs: 07/19/18 07:30 07/19/18 07:30 - Extremities Exam Additional comments: right knee: +ROM ankle/toes, sensation intact, calves soft NT neg homans +DP/PT Pulses incision intact, dry, no erythema, patien tseems to be eating a little more today Assessment and Plan (1) Osteoarthritis of right knee Assessment & Plan: POD#7 s/p right TKR orthopedically stable PT/OT VTE proph d/w Dr. Rodriguez, agrees with above Status: Acute (2) Vitamin D deficiency Assessment & Plan: < 12 supp cont as outpt, f/u PMD to retest in 3 months Status: Acute
--- NOTE | 2018-07-20 19:19 | CP.PCM.PN ---
Subjective - Date & Time of Evaluation Date of Evaluation: 07/18/18 Time of Evaluation: 15:00 - Subjective Subjective: patient with less knee pain Objective - Vital Signs/Intake and Output Vital Signs (last 24 hours): Temp Pulse Resp BP Pulse Ox 98.8 F 89 20 100/66 99 07/20/18 16:20 07/20/18 16:20 07/20/18 16:20 07/20/18 16:20 07/20/18 16:20 - Medications Medications: Current Medications Calcium/Vitamin D (Oyster Shell Calcium/Vitamin D 500 Mg-200 Iu) 1 tab PO DAILY [facility] Cholecalciferol (Vitamin D) 2,000 intlu PO DAILY [facility] Cyproheptadine HCl (Periactin) 4 mg PO TID [facility] Last Admin: 07/20/18 17:33 Dose: 4 mg Docusate Sodium (Colace) 100 mg PO BID [facility] Last Admin: 07/20/18 17:33 Dose: Not Given Doxepin HCl (Sinequan) 150 mg PO DAILY [facility] Last Admin: 07/20/18 08:50 Dose: 150 mg Enoxaparin Sodium (Lovenox) 40 mg SC DAILY [facility]; Protocol Last Admin: 07/20/18 08:48 Dose: 40 mg Famotidine (Pepcid) 20 mg PO BID [facility] Last Admin: 07/20/18 17:33 Dose: 20 mg Folic Acid (Folic Acid) 1 mg PO DAILY [facility] Last Admin: 07/20/18 08:47 Dose: 1 mg Gabapentin (Neurontin) 600 mg PO BID [facility] Last Admin: 07/20/18 17:33 Dose: 600 mg Ketorolac Tromethamine (Toradol) 30 mg IVP Q6 PRN PRN Reason: Pain, moderate (4-7) Last Admin: 07/20/18 14:37 Dose: 30 mg Methimazole (Tapazole) 20 mg PO TID [facility] Last Admin: 07/20/18 17:34 Dose: 20 mg Metoclopramide HCl (Reglan) 5 mg PO ACHS [facility] Last Admin: 07/20/18 17:34 Dose: 5 mg Metoprolol Tartrate (Lopressor) 12.5 mg PO Q12 [facility] Last Admin: 07/20/18 08:47 Dose: 12.5 mg Ondansetron HCl (Zofran Inj) 4 mg IVP Q6 PRN PRN Reason: Nausea/Vomiting Last Admin: 07/18/18 01:09 Dose: 4 mg Oxycodone/Acetaminophen (Percocet 5/325 Mg Tab) 1 tab PO Q6 PRN PRN Reason: Pain, moderate (4-7) Stop: 07/21/18 23:01 Last Admin: 07/20/18 17:37 Dose: 1 tab Oxycodone/Acetaminophen (Percocet 5/325 Mg Tab) 2 tab PO Q6 PRN PRN Reason: Pain, severe (8-10) Stop: 07/21/18 23:01 Trazodone HCl (Desyrel) 100 mg PO HS [facility] Last Admin: 07/19/18 22:20 Dose: 100 mg - Labs Labs: 07/19/18 07:30 07/19/18 07:30 - Constitutional Appears: Well - Head Exam Head Exam: ATRAUMATIC, NORMAL INSPECTION, NORMOCEPHALIC - Eye Exam Eye Exam: EOMI, Normal appearance Pupil Exam: NORMAL ACCOMODATION, PERRL - ENT Exam ENT Exam: Mucous Membranes Moist, Normal Exam - Neck Exam Neck Exam: Normal Inspection - Respiratory Exam Respiratory Exam: Clear to Ausculation Bilateral, NORMAL BREATHING PATTERN - Cardiovascular Exam Cardiovascular Exam: REGULAR RHYTHM - GI/Abdominal Exam GI & Abdominal Exam: Normal Bowel Sounds - Rectal Exam Rectal Exam: NORMAL INSPECTION - Exam External exam: NORMAL EXTERNAL EXAM - Extremities Exam Extremities Exam: Full ROM, Normal Capillary Refill, Normal Inspection - Back Exam Back Exam: NORMAL INSPECTION - Neurological Exam Neurological Exam: Alert, Awake Neuro motor strength exam: Left Lower Extremity: 3 - Psychiatric Exam Psychiatric exam: Normal Affect, Normal Mood - Skin Skin Exam: Dry, Normal Color, Warm Assessment and Plan (1) Osteoarthritis of right knee Assessment & Plan: status post knee replacement, improve range of motion in the knee, full weight bearing, physical, occupational therapy. Equipment evaluation for discharge planning once rehab is completed. Status: Acute
--- NOTE | 2018-07-20 19:23 | PN ---
DATE: 07/20/2018 ENDOCRINOLOGY FOLLOWUP NOTE LOCATION: Room 706. SUBJECTIVE: This is a 57-year-old female with recent right total knee replacement, and currently undergoing physical and occupational therapy in the TCU and is currently also being followed closely for metabolic management. She also has developed overt hyperthyroidism noted both historically, clinically, and biochemically as noted. Her latest thyroid study showed a T4 or thyroxine of 16.6 with a free T4 of 2.57 and a TSH of less than 0.02. So at this time, we will continue the modified and higher dosing of the Tapazole given as 20 mg p.o. t.i.d. after meals as ordered. It will take a few weeks for full dose equilibration and responds biochemically thereof. She feels a whole lot better now clinically with subsidence of the dizziness and lightheadedness but her dyspepsia and nil oral intake persists as noted. She will obtain serial thyroid studies and adjust her dose regimen accordingly. We will follow. Caitlyn Muñoz MD
[2018-07-21] MEDS: Oxycodone/Acetaminophen 5/325 mg Tab PO PRN ×3 (08:30→20:49)
[2018-07-21] MEDS: Enoxaparin 40 mg Syringe SC SCH (08:30)
[2018-07-21] MEDS: Calcium-Vit D 500 mg-200 Units Tab UD PO SCH (08:31)
[2018-07-21] MEDS: Cholecalciferol 1,000 INTLU TAB PO SCH (08:33)
--- NOTE | 2018-07-21 10:27 | CP.PCM.PN ---
Subjective - Date & Time of Evaluation Date of Evaluation: 07/21/18 Time of Evaluation: 10:25 - Subjective Subjective: pt doing well no complaints appetite improving hd stable nad Objective - Vital Signs/Intake and Output Vital Signs (last 24 hours): Temp Pulse Resp BP Pulse Ox 99.0 F 93 H 20 117/78 98 07/21/18 08:19 07/21/18 08:31 07/21/18 08:19 07/21/18 08:31 07/21/18 08:19 - Medications Medications: Current Medications Calcium/Vitamin D (Oyster Shell Calcium/Vitamin D 500 Mg-200 Iu) 1 tab PO DAILY [facility] Last Admin: 07/21/18 08:31 Dose: 1 tab Cholecalciferol (Vitamin D) 2,000 intlu PO DAILY [facility] Last Admin: 07/21/18 08:33 Dose: 2,000 intlu Cyproheptadine HCl (Periactin) 4 mg PO TID [facility] Last Admin: 07/21/18 08:31 Dose: 4 mg Docusate Sodium (Colace) 100 mg PO BID [facility] Last Admin: 07/21/18 08:32 Dose: Not Given Doxepin HCl (Sinequan) 150 mg PO DAILY [facility] Last Admin: 07/21/18 08:33 Dose: 150 mg Enoxaparin Sodium (Lovenox) 40 mg SC DAILY [facility]; Protocol Last Admin: 07/21/18 08:30 Dose: 40 mg Famotidine (Pepcid) 20 mg PO BID [facility] Last Admin: 07/21/18 08:31 Dose: 20 mg Folic Acid (Folic Acid) 1 mg PO DAILY [facility] Last Admin: 07/21/18 08:33 Dose: 1 mg Gabapentin (Neurontin) 600 mg PO BID [facility] Last Admin: 07/21/18 08:31 Dose: 600 mg Ketorolac Tromethamine (Toradol) 30 mg IVP Q6 PRN PRN Reason: Pain, moderate (4-7) Last Admin: 07/21/18 06:43 Dose: 30 mg Methimazole (Tapazole) 20 mg PO TID [facility] Last Admin: 07/21/18 08:32 Dose: 20 mg Metoclopramide HCl (Reglan) 5 mg PO ACHS [facility] Last Admin: 07/21/18 06:40 Dose: 5 mg Metoprolol Tartrate (Lopressor) 12.5 mg PO Q12 [facility] Last Admin: 07/21/18 08:31 Dose: 12.5 mg Ondansetron HCl (Zofran Inj) 4 mg IVP Q6 PRN PRN Reason: Nausea/Vomiting Last Admin: 07/18/18 01:09 Dose: 4 mg Oxycodone/Acetaminophen (Percocet 5/325 Mg Tab) 1 tab PO Q6 PRN PRN Reason: Pain, moderate (4-7) Stop: 07/21/18 23:01 Last Admin: 07/20/18 17:37 Dose: 1 tab Oxycodone/Acetaminophen (Percocet 5/325 Mg Tab) 2 tab PO Q6 PRN PRN Reason: Pain, severe (8-10) Stop: 07/21/18 23:01 Last Admin: 07/21/18 08:30 Dose: 2 tab Trazodone HCl (Desyrel) 100 mg PO HS [facility] Last Admin: 07/20/18 21:12 Dose: 100 mg - Labs Labs: 07/19/18 07:30 07/19/18 07:30 - Constitutional Appears: Non-toxic, No Acute Distress - Head Exam Head Exam: ATRAUMATIC, NORMOCEPHALIC - Eye Exam Eye Exam: EOMI, Normal appearance - ENT Exam ENT Exam: Mucous Membranes Moist, Normal Oropharynx - Respiratory Exam Respiratory Exam: Clear to Ausculation Bilateral, NORMAL BREATHING PATTERN - Cardiovascular Exam Cardiovascular Exam: RRR, +S1, +S2 - GI/Abdominal Exam GI & Abdominal Exam: Soft, Normal Bowel Sounds. absent: Tenderness, Organomegaly - Extremities Exam Extremities Exam: Normal Capillary Refill. absent: Calf Tenderness - Back Exam Back Exam: absent: CVA tenderness (L), CVA tenderness (R) - Neurological Exam Neurological Exam: Alert, Awake - Psychiatric Exam Psychiatric exam: Normal Affect, Normal Mood - Skin Skin Exam: Dry, Warm Assessment and Plan - Assessment and Plan (Free Text) Plan: 57F with pmhx of osteoarthritis and ossteonecrosis POD 8 R total knee replacement Plan: 1. Right Knee Osteoarthritis - x-ray - Small Subchondral fracture along the posterior medial edge of the medial tibio-femoral plateau with extensive subchondral edema. (Spontaneous osteonecrosis of the knee) - postop x-ray - satisfactory postop status - Dr Rodriguez on consult for Orthopedic - POD 8 TKR - Orthopedic management - Pain management consulted - can transition to percocet 5/325 1-2 tabs po q4- 6h prn moderate to severe pain. Pt can also have IV toradol as an adjunct. - PT/OT - benefit from further skilled treatment 2. Stress Ulcer Prophylaxis - pepcid
--- NOTE | 2018-07-21 10:45 | CP.PCM.PN ---
Subjective - Date & Time of Evaluation Date of Evaluation: 07/21/18 Time of Evaluation: 10:00 - Subjective Subjective: NO CHEST PAIN, SOB OR PALPITATIONS RIGHT KNEE FEELS GOOD Objective - Vital Signs/Intake and Output Vital Signs (last 24 hours): Temp Pulse Resp BP Pulse Ox 99.0 F 93 H 20 117/78 98 07/21/18 08:19 12 08:31 12 08:19 07/21/18 08:31 07/21/18 08:19 - Medications Medications: Current Medications Calcium/Vitamin D (Oyster Shell Calcium/Vitamin D 500 Mg-200 Iu) 1 tab PO DAILY [facility] Last Admin: 07/21/18 08:31 Dose: 1 tab Cholecalciferol (Vitamin D) 2,000 intlu PO DAILY [facility] Last Admin: 07/21/18 08:33 Dose: 2,000 intlu Cyproheptadine HCl (Periactin) 4 mg PO TID [facility] Last Admin: 07/21/18 08:31 Dose: 4 mg Docusate Sodium (Colace) 100 mg PO BID [facility] Last Admin: 07/21/18 08:32 Dose: Not Given Doxepin HCl (Sinequan) 150 mg PO DAILY [facility] Last Admin: 07/21/18 08:33 Dose: 150 mg Enoxaparin Sodium (Lovenox) 40 mg SC DAILY [facility]; Protocol Last Admin: 07/21/18 08:30 Dose: 40 mg Famotidine (Pepcid) 20 mg PO BID [facility] Last Admin: 07/21/18 08:31 Dose: 20 mg Folic Acid (Folic Acid) 1 mg PO DAILY [facility] Last Admin: 07/21/18 08:33 Dose: 1 mg Gabapentin (Neurontin) 600 mg PO BID [facility] Last Admin: 07/21/18 08:31 Dose: 600 mg Ketorolac Tromethamine (Toradol) 30 mg IVP Q6 PRN PRN Reason: Pain, moderate (4-7) Last Admin: 07/21/18 06:43 Dose: 30 mg Methimazole (Tapazole) 20 mg PO TID [facility] Last Admin: 07/21/18 08:32 Dose: 20 mg Metoclopramide HCl (Reglan) 5 mg PO ACHS [facility] Last Admin: 07/21/18 06:40 Dose: 5 mg Metoprolol Tartrate (Lopressor) 12.5 mg PO Q12 [facility] Last Admin: 07/21/18 08:31 Dose: 12.5 mg Ondansetron HCl (Zofran Inj) 4 mg IVP Q6 PRN PRN Reason: Nausea/Vomiting Last Admin: 07/18/18 01:09 Dose: 4 mg Oxycodone/Acetaminophen (Percocet 5/325 Mg Tab) 1 tab PO Q6 PRN PRN Reason: Pain, moderate (4-7) Stop: 07/21/18 23:01 Last Admin: 07/20/18 17:37 Dose: 1 tab Oxycodone/Acetaminophen (Percocet 5/325 Mg Tab) 2 tab PO Q6 PRN PRN Reason: Pain, severe (8-10) Stop: 07/21/18 23:01 Last Admin: 07/21/18 08:30 Dose: 2 tab Trazodone HCl (Desyrel) 100 mg PO HS [facility] Last Admin: 07/20/18 21:12 Dose: 100 mg - Labs Labs: 07/19/18 07:30 07/19/18 07:30 - Respiratory Exam Respiratory Exam: Clear to Ausculation Bilateral - Cardiovascular Exam Cardiovascular Exam: REGULAR RHYTHM, +S1, +S2 Assessment and Plan - Assessment and Plan (Free Text) Assessment: RIGHT TKR HYPERTENSION HYPERTHYROIDISM Plan: CONTINUE METOPROLOL, TAPAZOLE AND LOVENOX CONTINUE WITH [facility]
--- NOTE | 2018-07-21 15:54 | CP.PCM.PN ---
Subjective - Date & Time of Evaluation Date of Evaluation: 07/21/18 Time of Evaluation: 15:52 - Subjective Subjective: Patient complaining of pain in her leg and feeling unstable. She says the pain is not improving with PT now. Denies CP/SOB/dizziness. Objective - Vital Signs/Intake and Output Vital Signs (last 24 hours): Temp Pulse Resp BP Pulse Ox 99.0 F 93 H 20 117/78 98 07/21/18 08:19 07/21/18 08:31 07/21/18 08:19 07/21/18 08:31 07/21/18 08:19 - Medications Medications: Current Medications Calcium/Vitamin D (Oyster Shell Calcium/Vitamin D 500 Mg-200 Iu) 1 tab PO DAILY [facility] Last Admin: 07/21/18 08:31 Dose: 1 tab Cholecalciferol (Vitamin D) 2,000 intlu PO DAILY [facility] Last Admin: 07/21/18 08:33 Dose: 2,000 intlu Cyproheptadine HCl (Periactin) 4 mg PO TID [facility] Last Admin: 07/21/18 12:05 Dose: 4 mg Docusate Sodium (Colace) 100 mg PO BID [facility] Last Admin: 07/21/18 08:32 Dose: Not Given Doxepin HCl (Sinequan) 150 mg PO DAILY [facility] Last Admin: 07/21/18 08:33 Dose: 150 mg Enoxaparin Sodium (Lovenox) 40 mg SC DAILY [facility]; Protocol Last Admin: 07/21/18 08:30 Dose: 40 mg Famotidine (Pepcid) 20 mg PO BID [facility] Last Admin: 07/21/18 08:31 Dose: 20 mg Folic Acid (Folic Acid) 1 mg PO DAILY [facility] Last Admin: 07/21/18 08:33 Dose: 1 mg Gabapentin (Neurontin) 600 mg PO BID [facility] Last Admin: 07/21/18 08:31 Dose: 600 mg Ketorolac Tromethamine (Toradol) 30 mg IVP Q6 PRN PRN Reason: Pain, moderate (4-7) Last Admin: 07/21/18 06:43 Dose: 30 mg Methimazole (Tapazole) 20 mg PO TID [facility] Last Admin: 07/21/18 12:06 Dose: 20 mg Metoclopramide HCl (Reglan) 5 mg PO ACHS [facility] Last Admin: 07/21/18 12:06 Dose: 5 mg Metoprolol Tartrate (Lopressor) 12.5 mg PO Q12 [facility] Last Admin: 07/21/18 08:31 Dose: 12.5 mg Ondansetron HCl (Zofran Inj) 4 mg IVP Q6 PRN PRN Reason: Nausea/Vomiting Last Admin: 07/18/18 01:09 Dose: 4 mg Oxycodone/Acetaminophen (Percocet 5/325 Mg Tab) 1 tab PO Q6 PRN PRN Reason: Pain, moderate (4-7) Stop: 07/21/18 23:01 Last Admin: 07/20/18 17:37 Dose: 1 tab Oxycodone/Acetaminophen (Percocet 5/325 Mg Tab) 2 tab PO Q6 PRN PRN Reason: Pain, severe (8-10) Stop: 07/21/18 23:01 Last Admin: 07/21/18 15:05 Dose: 2 tab Trazodone HCl (Desyrel) 100 mg PO HS [facility] Last Admin: 07/20/18 21:12 Dose: 100 mg - Labs Labs: 07/19/18 07:30 07/19/18 07:30 - Extremities Exam Additional comments: RLE: incision intact, dry, no erythema. Noted erythema to anterior tibia to distal 1/3 with some pitting edema to anterior prox tibia. Incision dry. calves soft NT neg homans +DP/PT Pulses lateral knee and anterior tibia TTP Assessment and Plan (1) Osteoarthritis of right knee Assessment & Plan: POD#8 s/p TKR will discuss with Dr. Rodriguez dressing changes VTE proph cont PT/CPM at this time Status: Acute (2) Vitamin D deficiency Status: Acute
--- NOTE | 2018-07-21 20:56 | PN ---
DATE: 07/21/2018 ENDOCRINOLOGY FOLLOWUP NOTE LOCATION: Room 706. SUBJECTIVE: This is a 57-year-old female with recent right total knee replacement and currently in TCU for ongoing physical and occupational therapy and is being followed closely also for recent diagnosis of overt hyperthyroidism. LABORATORY DATA: Her latest chemistry showed a BUN of 19, sodium 141, potassium 3.9, chloride 103, CO2 of 27, glucose 129, and creatinine 0.7. Her latest thyroxine values showed a T4 of 16.6 with a free T4 of 2.57 and a TSH of less than 0.02. Her vitamin D level is less than 12.8. ASSESSMENT AND PLAN: So at this time, we will continue the modified and higher dosing of the Tapazole given as 10 mg by mouth t.i.d. after meals as ordered. We will obtain serial thyroid studies and titrate her dose regimen accordingly. We will also obtain serial chemistries and supplement accordingly as needed. We are awaiting the results of the thyroid antibodies which will confirm and/or indicate the presence of underlying thyroid autoimmunity. We will follow. Caitlyn Muñoz MD
[2018-07-22] MEDS ORDERED: Alum-Mag Hydrox-Simethicone Susp (30 mL) PO STA (00:01)
[2018-07-22] MEDS ORDERED: Simethicone 80 mg Chewtab PO STA (00:05)
[2018-07-22] MEDS ORDERED: Oxycodone/Acetaminophen 5/325 mg Tab PO PRN (05:02)
[2018-07-22] MEDS: Pantoprazole 40 mg EC Tab PO SCH ×2 (05:16→16:47)
[2018-07-22 07:04] LABS: ALB/GLOB RATIO 1.1 (1.0-2.1); ALBUMIN 4.3 g/dL (3.5-5.0); ALT/SGPT 60 U/L (9-52); AST/SGOT 47 U/L (14-36); BLOOD UREA NITROGEN 16 mg/dl (7-17); CALCIUM 10.6 mg/dL (8.4-10.2); GFR NON-AFRICAN AMERICAN > 60
[2018-07-22 07:12] LABS: T4 15.8 ug/dl (5.5-11.0)
[2018-07-22] MEDS: Enoxaparin 40 mg Syringe SC SCH (09:55)
[2018-07-22 10:20] LABS: BASO # 0.1 K/uL (0.0-0.2); BASO % 0.7 % (0.0-2.0); EOS # 0.5 K/uL (0.0-0.7); EOS % 4.6 % (0.0-4.0); HEMOGLOBIN 11.7 g/dL (12.0-16.0); LYMPH # 2.3 K/uL (1.0-4.3); LYMPH % 19.5 % (20.0-40.0); MEAN CELL VOLUME 90.8 fl (81.0-99.0); MEAN CORPUSCULAR HEMOGLOBIN 29.5 pg (27.0-31.0); MEAN CORPUSCULAR HGB CONC 32.5 g/dL (33.0-37.0); MEAN PLATELET VOLUME 8.6 fl (7.2-11.7); MONO # 0.9 K/uL (0.0-0.8); MONO % 7.2 % (0.0-10.0); NEUT # 8.1 K/uL (1.8-7.0); NRBC % 0.1 % (0.0-0.0); RBC 3.97 Mil/uL (3.80-5.20); RED CELL DISTRIBUTION WIDTH 14.7 % (11.5-14.5); WHITE BLOOD COUNT 11.9 K/uL (4.8-10.8)
--- NOTE | 2018-07-22 11:18 | CP.PCM.PN ---
Subjective - Date & Time of Evaluation Date of Evaluation: 07/22/18 Time of Evaluation: 10:15 - Subjective Subjective: NO CHEST PAIN HAD SOME EPIGASTRIC DISCOMFORT THIS AM RELIEVED BY MAALOX Objective - Vital Signs/Intake and Output Vital Signs (last 24 hours): Temp Pulse Resp BP Pulse Ox 99.0 F 87 20 133/85 99 07/22/18 08:05 07/22/18 09:54 07/22/18 08:05 07/22/18 09:54 07/22/18 08:05 - Medications Medications: Current Medications Acetaminophen (Tylenol 325mg Tab) 650 mg PO Q4 PRN PRN Reason: Pain, Mild (1-3) Calcium/Vitamin D (Oyster Shell Calcium/Vitamin D 500 Mg-200 Iu) 1 tab PO DAILY [facility] Last Admin: 07/21/18 08:31 Dose: 1 tab Cholecalciferol (Vitamin D) 2,000 intlu PO DAILY [facility] Last Admin: 07/21/18 08:33 Dose: 2,000 intlu Cyproheptadine HCl (Periactin) 4 mg PO TID [facility] Last Admin: 07/22/18 09:56 Dose: 4 mg Docusate Sodium (Colace) 100 mg PO BID [facility] Last Admin: 07/22/18 09:55 Dose: 100 mg Doxepin HCl (Sinequan) 150 mg PO DAILY@2100 [facility] Enoxaparin Sodium (Lovenox) 40 mg SC DAILY [facility]; Protocol Last Admin: 07/22/18 09:55 Dose: 40 mg Folic Acid (Folic Acid) 1 mg PO DAILY [facility] Last Admin: 07/21/18 08:33 Dose: 1 mg Gabapentin (Neurontin) 600 mg PO BID [facility] Last Admin: 07/22/18 09:54 Dose: 600 mg Ketorolac Tromethamine (Toradol) 30 mg IVP Q6 PRN PRN Reason: Pain, moderate (4-7) Last Admin: 07/21/18 06:43 Dose: 30 mg Methimazole (Tapazole) 20 mg PO TID [facility] Last Admin: 07/22/18 09:56 Dose: 20 mg Metoclopramide HCl (Reglan) 5 mg PO ACHS [facility] Last Admin: 07/22/18 07:09 Dose: 5 mg Metoprolol Tartrate (Lopressor) 12.5 mg PO Q12 [facility] Last Admin: 07/22/18 09:54 Dose: 12.5 mg Ondansetron HCl (Zofran Inj) 4 mg IVP Q6 PRN PRN Reason: Nausea/Vomiting Last Admin: 07/18/18 01:09 Dose: 4 mg Oxycodone/Acetaminophen (Percocet 5/325 Mg Tab) 2 tab PO Q4 PRN PRN Reason: Pain, severe (8-10) Stop: 07/25/18 05:01 Oxycodone/Acetaminophen (Percocet 5/325 Mg Tab) 1 tab PO Q4 PRN PRN Reason: Pain, moderate (4-7) Stop: 07/25/18 05:03 Pantoprazole Sodium (Protonix Ec Tab) 40 mg PO BID [facility] Last Admin: 07/22/18 05:16 Dose: 40 mg Trazodone HCl (Desyrel) 100 mg PO HS [facility] Last Admin: 07/21/18 23:08 Dose: 100 mg - Labs Labs: 07/22/18 10:02 07/22/18 05:45 - Respiratory Exam Respiratory Exam: Clear to Ausculation Bilateral - Cardiovascular Exam Cardiovascular Exam: REGULAR RHYTHM, +S1, +S2 - Additional Findings Additional findings: PATIENT HAS EPIGASTRIC DISCOMFORT THIS MORNING RELIEVED BY MAALOX AND SIMETHACONE SHE DENIES CHEST PAIN AND REFUDED AN EKG Assessment and Plan - Assessment and Plan (Free Text) Assessment: RIGHT TKR HYPERTENSION HYPERTHYROIDISM Plan: CONTINUE METOPROLOL, TAPAZOLE AND LOVENOX
--- NOTE | 2018-07-22 15:06 | CP.PCM.PN ---
Subjective - Date & Time of Evaluation Date of Evaluation: 07/22/18 Time of Evaluation: 14:00 - Subjective Subjective: Patient seen and examined at bedside comfortable. Reports pain is better controlled. Continues to have anterior mid nielson tenderness. Denies fevers/SOB/CP. Tolerating PT well, ambulating with rolling walker. Objective - Vital Signs/Intake and Output Vital Signs (last 24 hours): Temp Pulse Resp BP Pulse Ox 99.0 F 87 20 133/85 99 07/22/18 08:05 07/22/18 09:54 07/22/18 08:05 07/22/18 09:54 07/22/18 08:05 - Medications Medications: Current Medications Acetaminophen (Tylenol 325mg Tab) 650 mg PO Q4 PRN PRN Reason: Pain, Mild (1-3) Calcium/Vitamin D (Oyster Shell Calcium/Vitamin D 500 Mg-200 Iu) 1 tab PO DAILY [facility] Last Admin: 07/21/18 08:31 Dose: 1 tab Cholecalciferol (Vitamin D) 2,000 intlu PO DAILY [facility] Last Admin: 07/21/18 08:33 Dose: 2,000 intlu Cyproheptadine HCl (Periactin) 4 mg PO TID [facility] Last Admin: 07/22/18 09:56 Dose: 4 mg Docusate Sodium (Colace) 100 mg PO BID [facility] Last Admin: 07/22/18 09:55 Dose: 100 mg Doxepin HCl (Sinequan) 150 mg PO DAILY@2100 [facility] Enoxaparin Sodium (Lovenox) 40 mg SC DAILY [facility]; Protocol Last Admin: 07/22/18 09:55 Dose: 40 mg Folic Acid (Folic Acid) 1 mg PO DAILY [facility] Last Admin: 07/21/18 08:33 Dose: 1 mg Gabapentin (Neurontin) 600 mg PO BID [facility] Last Admin: 07/22/18 09:54 Dose: 600 mg Ketorolac Tromethamine (Toradol) 30 mg IVP Q6 PRN PRN Reason: Pain, moderate (4-7) Last Admin: 07/21/18 06:43 Dose: 30 mg Methimazole (Tapazole) 20 mg PO TID [facility] Last Admin: 07/22/18 09:56 Dose: 20 mg Metoclopramide HCl (Reglan) 5 mg PO ACHS [facility] Last Admin: 07/22/18 07:09 Dose: 5 mg Metoprolol Tartrate (Lopressor) 12.5 mg PO Q12 [facility] Last Admin: 07/22/18 09:54 Dose: 12.5 mg Ondansetron HCl (Zofran Inj) 4 mg IVP Q6 PRN PRN Reason: Nausea/Vomiting Last Admin: 07/18/18 01:09 Dose: 4 mg Oxycodone/Acetaminophen (Percocet 5/325 Mg Tab) 2 tab PO Q4 PRN PRN Reason: Pain, severe (8-10) Stop: 07/25/18 05:01 Oxycodone/Acetaminophen (Percocet 5/325 Mg Tab) 1 tab PO Q4 PRN PRN Reason: Pain, moderate (4-7) Stop: 07/25/18 05:03 Pantoprazole Sodium (Protonix Ec Tab) 40 mg PO BID [facility] Last Admin: 07/22/18 05:16 Dose: 40 mg Trazodone HCl (Desyrel) 100 mg PO HS [facility] Last Admin: 07/21/18 23:08 Dose: 100 mg - Labs Labs: 07/22/18 10:02 07/22/18 05:45 - Extremities Exam Additional comments: R knee: Dressing CDI, mild swelling tenderness and redness at anterior mid nielson sensation intact SP/DP/TN motor intact EHL/FHl/TA/G pedal pulses intact calves soft NT b/l Assessment and Plan (1) Status post total right knee replacement Assessment & Plan: POD # 9 s/p R TKA -Repeat R knee xray -PT/OT WBAT -pain control -continue CPM and knee imm as per order -DVT ppx -above d/w Dr. Rodriguez in agreement Status: Acute
[2018-07-22] MEDS: Cholecalciferol 1,000 INTLU TAB PO SCH (16:41)
[2018-07-22] MEDS: Calcium-Vit D 500 mg-200 Units Tab UD PO SCH (16:42)
[2018-07-22 17:43] LABS: TSI 163 % baseline (<140)
[2018-07-22] MEDS: Oxycodone/Acetaminophen 5/325 mg Tab PO PRN (18:39)
--- NOTE | 2018-07-22 19:18 | PN ---
DATE: 07/22/2018 ENDOCRINOLOGY FOLLOWUP NOTE LOCATION: Room 706. SUBJECTIVE: This is a 57-year-old female with recent right total knee replacement and currently receiving physical and occupational therapy here at the [facility] and is also being followed closely for metabolic management. She was also evaluated to have overt thyrotoxicosis with marked hyperthyroidism noted both historically, clinically and biochemically as noted thereof. The repeat thyroid studies today showed a T4 or thyroxine of 15.8 with a TSH of less than 0.02 and a free T4 of 2.27. LABORATORY DATA: Her chemistry showed a BUN of 16, sodium 138, potassium 5, chloride 104, CO2 of 25, glucose 127 and creatinine 0.7. Her calcium level is 10.6. Her parathyroid hormone or PTH level is 52. So this is a non parathyroid related hypercalcemia which is most likely associated with the recent hyperthyroidism and increased bone resorption thereof. ASSESSMENT AND PLAN: So at this time, we will continue the modified and higher dosing of the Tapazole given as 20 mg by mouth t.i.d. after meals as ordered. We will obtain serial chemistries and supplement accordingly as needed. We will follow. Caitlyn Muñoz MD
[2018-07-22 19:52] VITALS: O2SAT 100
[2018-07-23 08:01] VITALS: PULSE 99
--- NOTE | 2018-07-23 08:06 | RAD ---
Date of service: 07/22/2018 PROCEDURE: Right Knee Radiographs. HISTORY: post op COMPARISON: Right knee radiographs 07/13/2018. FINDINGS: BONES: No acute fracture dislocation identified in the interval. Postoperative changes have diminished status post right knee arthroplasty with skin wanda remaining in place anteriorly. Prosthetic components at the right knee appear unchanged in position. JOINTS: Post arthroplasty. JOINT EFFUSION: None. OTHER FINDINGS: None. IMPRESSION: Post arthroplasty with nearly completely resolved postoperative change. No acute fracture, subluxation or dislocation. Stable appearance of prosthetic components.
--- NOTE | 2018-07-23 08:08 | RAD ---
Date of service: 07/22/2018 PROCEDURE: Radiographs of the right tibia and fibula. HISTORY: leg pain COMPARISON: None available TECHNIQUE: Frontal and lateral views obtained. FINDINGS: BONES: No acute fracture or dislocation throughout the right tibia or fibula. Postop changes are are limited at the right knee status post TKR. JOINT SPACES: Limited suprapatellar bursa postoperative change. Skin wanda noted anteriorly. OTHER FINDINGS: None. IMPRESSION: No acute fracture dislocation right tibia or fibula. Prosthetic component status post TKR unchanged in appearance.
[2018-07-23] MEDS: Calcium-Vit D 500 mg-200 Units Tab UD PO SCH (09:35)
[2018-07-23] MEDS: Pantoprazole 40 mg EC Tab PO SCH ×2 (09:37→16:17)
[2018-07-23] MEDS: Enoxaparin 40 mg Syringe SC SCH (09:37)
[2018-07-23] MEDS: Cholecalciferol 1,000 INTLU TAB PO SCH (09:38)
[2018-07-23] MEDS: Oxycodone/Acetaminophen 5/325 mg Tab PO PRN ×2 (12:36→16:40)
--- NOTE | 2018-07-23 13:23 | CP.PCM.PN ---
Subjective - Date & Time of Evaluation Date of Evaluation: 07/23/18 Time of Evaluation: 13:24 - Subjective Subjective: i d note patient examined ,EMR reviewed discussed c erythema appaently has has decreased significantly,minimal tenderness would rx c po clindamycin 300 mg po bid x 10 days if fine c Dr. Rodriguez ,may be discharged Objective - Vital Signs/Intake and Output Vital Signs (last 24 hours): Temp Pulse Resp BP Pulse Ox 98.3 F 99 H 20 121/82 100 07/23/18 07:59 07/23/18 09:33 07/23/18 07:59 07/23/18 09:33 07/23/18 07:59 - Medications Medications: Current Medications Acetaminophen (Tylenol 325mg Tab) 650 mg PO Q4 PRN PRN Reason: Pain, Mild (1-3) Calcium/Vitamin D (Oyster Shell Calcium/Vitamin D 500 Mg-200 Iu) 1 tab PO DAILY [facility] Last Admin: 07/23/18 09:35 Dose: 1 tab Cholecalciferol (Vitamin D) 2,000 intlu PO DAILY [facility] Last Admin: 07/23/18 09:38 Dose: 2,000 intlu Cyproheptadine HCl (Periactin) 4 mg PO TID [facility] Last Admin: 07/23/18 12:37 Dose: 4 mg Docusate Sodium (Colace) 100 mg PO BID [facility] Last Admin: 07/23/18 09:33 Dose: Not Given Doxepin HCl (Sinequan) 150 mg PO DAILY@2100 [facility] Last Admin: 07/22/18 22:20 Dose: 150 mg Enoxaparin Sodium (Lovenox) 40 mg SC DAILY [facility]; Protocol Last Admin: 07/23/18 09:37 Dose: 40 mg Folic Acid (Folic Acid) 1 mg PO DAILY [facility] Last Admin: 07/23/18 09:37 Dose: 1 mg Gabapentin (Neurontin) 600 mg PO BID [facility] Last Admin: 07/23/18 09:35 Dose: 600 mg Ketorolac Tromethamine (Toradol) 30 mg IM Q6 PRN PRN Reason: Pain, moderate (4-7) Last Admin: 07/23/18 01:55 Dose: 30 mg Methimazole (Tapazole) 20 mg PO TID [facility] Last Admin: 07/23/18 12:37 Dose: 20 mg Metoclopramide HCl (Reglan) 5 mg PO ACHS [facility] Last Admin: 07/23/18 11:30 Dose: 5 mg Metoprolol Tartrate (Lopressor) 12.5 mg PO Q12 [facility] Last Admin: 07/23/18 09:33 Dose: 12.5 mg Ondansetron HCl (Zofran Inj) 4 mg IVP Q6 PRN PRN Reason: Nausea/Vomiting Last Admin: 07/18/18 01:09 Dose: 4 mg Oxycodone/Acetaminophen (Percocet 5/325 Mg Tab) 2 tab PO Q4 PRN PRN Reason: Pain, severe (8-10) Stop: 07/25/18 05:01 Last Admin: 07/23/18 12:36 Dose: 2 tab Oxycodone/Acetaminophen (Percocet 5/325 Mg Tab) 1 tab PO Q4 PRN PRN Reason: Pain, moderate (4-7) Stop: 07/25/18 05:03 Pantoprazole Sodium (Protonix Ec Tab) 40 mg PO BID [facility] Last Admin: 07/23/18 09:37 Dose: 40 mg Trazodone HCl (Desyrel) 100 mg PO HS [facility] Last Admin: 07/22/18 22:16 Dose: 100 mg - Labs Labs: 07/22/18 10:02 07/22/18 05:45
--- NOTE | 2018-07-23 13:34 | CP.PCM.DIS ---
Provider - Provider Date of Admission: 07/15/18 21:53 Attending physician: Papo Saravia Primary care physician: Ortho : Dr Rodriguez Endo : Dr Muñoz ID: Dr Martinez Consults: 07/16/18 07:00 Physician Consult Routine Comment: Consulting Provider: Jayden Rodriguez III Consulting Physician: Jayden Rodriguez III Reason for Consult: s/ R TKR Physician Consult Routine Comment: Consulting Provider: Caitlyn Muñoz Consulting Physician: Caitlyn Muñoz Reason for Consult: Hyperthyroid 07/16/18 10:11 Cardiology Consult Routine Comment: Consulting Provider: Hunter Marsh Consulting Physician: Hunter Marsh Reason for Consult: sinus tachycardia 07/16/18 11:19 Psychiatry Consult Routine Comment: Consulting Provider: Vimal Alvarez Consulting Physician: Vimal Alvarez Reason for Consult: history of depression 07/16/18 17:58 Physiatry Consult Routine Comment: Consulting Provider: Nguyễn Gordon Consulting Physician: Nguyễn Gordon Reason for Consult: s/p rt tkr 07/22/18 16:17 Infectious Disease Consult Routine Comment: Consulting Provider: Guanakito Martinez Consulting Physician: Guanakito Martinez Reason for Consult: right leg redness Time Spent in preparation of Discharge (in minutes): 25 Diagnosis - Discharge Diagnosis (1) Status post total right knee replacement Status: Acute (2) Osteoarthritis of right knee Status: Chronic (3) Depression Status: Chronic (4) Hyperthyroidism Status: Acute Hospital Course - Lab Results Lab Results: Most Recent Lab Values WBC 11.9 K/uL (4.8-10.8) H 07/22/18 10:02 RBC 3.97 Mil/uL (3.80-5.20) 07/22/18 10:02 Hgb 11.7 g/dL (12.0-16.0) L 07/22/18 10:02 Hct 36.0 % (34.0-47.0) 07/22/18 10:02 MCV 90.8 fl (81.0-99.0) 07/22/18 10:02 MCH 29.5 pg (27.0-31.0) 07/22/18 10:02 MCHC 32.5 g/dL (33.0-37.0) L 07/22/18 10:02 RDW 14.7 % (11.5-14.5) H 07/22/18 10:02 Plt Count 470 K/uL (130-400) H D 07/22/18 10:02 MPV 8.6 fl (7.2-11.7) 07/22/18 10:02 Neut % (Auto) 68.0 % (50.0-75.0) 07/22/18 10:02 Lymph % (Auto) 19.5 % (20.0-40.0) L 07/22/18 10:02 [place] % (Auto) 7.2 % (0.0-10.0) 07/22/18 10:02 Eos % (Auto) 4.6 % (0.0-4.0) H 07/22/18 10:02 Baso % (Auto) 0.7 % (0.0-2.0) 07/22/18 10:02 Neut # (Auto) 8.1 K/uL (1.8-7.0) H 07/22/18 10:02 Lymph # (Auto) 2.3 K/uL (1.0-4.3) 07/22/18 10:02 [place] # (Auto) 0.9 K/uL (0.0-0.8) H 07/22/18 10:02 Eos # (Auto) 0.5 K/uL (0.0-0.7) 07/22/18 10:02 Baso # (Auto) 0.1 K/uL (0.0-0.2) 07/22/18 10:02 pCO2 34 mm/Hg (35-45) L 07/16/18 10:20 pO2 84 mm/Hg (80-100) 07/16/18 10:20 HCO3 26.0 mmol/L (21-28) 07/16/18 10:20 ABG pH 7.47 (7.35-7.45) H 07/16/18 10:20 ABG Total CO2 25.7 mmol/L (22-28) 07/16/18 10:20 ABG O2 Saturation 99.1 % (95-98) H 07/16/18 10:20 ABG Base Excess 1.5 mmol/L (-2.0-3.0) 07/16/18 10:20 ABG Hemoglobin 14.3 g/dL (11.7-17.4) 07/16/18 10:20 ABG Carboxyhemoglobin 2.6 % (0.5-1.5) H 07/16/18 10:20 POC ABG HHb (Measured) 0.9 % (0.0-5.0) 07/16/18 10:20 ABG Methemoglobin 1.4 % (0.0-3.0) 07/16/18 10:20 Ruddy Test Yes 07/16/18 10:20 Hgb O2 Saturation 95.1 % (95.0-98.0) 07/16/18 10:20 FiO2 21.0 % 07/16/18 10:20 Sodium 138 mmol/l (132-148) 07/22/18 05:45 Potassium 5.0 MMOL/L (3.6-5.0) 07/22/18 05:45 Chloride 104 mmol/L (98-107) 07/22/18 05:45 Carbon Dioxide 25 mmol/L (22-30) 07/22/18 05:45 Anion Gap 14 (10-20) 07/22/18 05:45 BUN 16 mg/dl (7-17) 07/22/18 05:45 Creatinine 0.7 mg/dl (0.7-1.2) 07/22/18 05:45 Est GFR ( Amer) > 60 07/22/18 05:45 Est GFR (Non-Af Amer) > 60 07/22/18 05:45 Random Glucose 127 mg/dL (65-105) H 07/22/18 05:45 Calcium 10.6 mg/dL (8.4-10.2) H 07/22/18 05:45 Phosphorus 3.2 mg/dl (2.5-4.5) 07/19/18 07:30 Magnesium 2.3 MG/DL (1.6-2.3) 07/22/18 05:45 Total Bilirubin 1.1 mg/dl (0.2-1.3) 07/22/18 05:45 AST 47 U/L (14-36) H D 07/22/18 05:45 ALT 60 U/L (9-52) H D 12/12/18 05:45 Alkaline Phosphatase 69 U/L (38-126) 07/22/18 05:45 Troponin I < 0.0120 ng/mL (0.00-0.120) 07/16/18 10:27 Total Protein 8.1 G/DL (6.3-8.2) 07/22/18 05:45 Albumin 4.3 g/dL (3.5-5.0) 07/22/18 05:45 Globulin 3.8 gm/dL (2.2-3.9) 07/22/18 05:45 Albumin/Globulin Ratio 1.1 (1.0-2.1) 07/22/18 05:45 25-OH Vitamin D Total < 12.8 NG/ML (30.0-100.0) L 07/18/18 05:30 Free T4 2.27 ng/dL (0.78-2.19) H 07/22/18 05:45 Thyroxine (T4) 15.8 ug/dl (5.5-11.0) H 07/22/18 05:45 TSH 3rd Generation < 0.02 mIU/ML (0.46-4.68) L 07/22/18 05:45 Thyroid Stim Immunoglob 163 % baseline (<140) H 07/19/18 07:30 Calcium (PTH Intact) 10.4 mg/dL (8.6-10.4) 07/19/18 08:20 PTH w/Ion &Tot Calcium 52 pg/mL (14-64) 07/19/18 08:20 Thyroperoxidase Ab <1 IU/mL (<9) 07/19/18 07:30 - Hospital Course Hospital Course: 1. Primary OA s/p Right Knee TKR - cleared by Ortho for d/c - Pain mgt : percocet 1 tab q 4 prn - PT/OT - DVT proph- received Lovenox, will d/c on ASA 81 mg bid - seen by KORI ambriz to d/c home on PO Clindamycin 300 mg bid x 10 day 2. Depression - Pt takes Doxepin, Cyproheptadine , Trazodone and Gabapentin at home ( has been on these meds for many years), we will continue 3. HTN - cont Norvasc 4. Hyperthyroidism TSH low with elevated T4 - seen by ENDO - Dr Cam rec to start Methimazole 5. DVT proph LOvenox Discharge Exam - Head Exam Head Exam: ATRAUMATIC, NORMAL INSPECTION, NORMOCEPHALIC - Eye Exam Eye Exam: EOMI, Normal appearance, PERRL Pupil Exam: NORMAL ACCOMODATION - ENT Exam ENT Exam: Mucous Membranes Moist, Normal External Ear Exam - Neck Exam Neck exam: Full Rom - Respiratory Exam Respiratory Exam: NORMAL BREATHING PATTERN. absent: Respiratory Distress - Cardiovascular Exam Cardiovascular Exam: REGULAR RHYTHM, +S1, +S2 - GI/Abdominal Exam GI & Abdominal Exam: Normal Bowel Sounds, Soft. absent: Tenderness - Extremities Exam Extremities exam: normal capillary refill, pedal pulses present Additional comments: no calf tenderness - Back Exam Back exam: FULL ROM. absent: CVA tenderness (L), CVA tenderness (R) - Neurological Exam Neurological exam: Alert, CN II-XII Intact, Oriented x3, Reflexes Normal - Psychiatric Exam Psychiatric exam: Flat Affect - Skin Skin Exam: Dry, Normal Color, Warm Discharge Plan - Discharge Medications Prescriptions: Aspirin [Adult Aspirin] 81 mg PO BID #1 tablet. Clindamycin [Cleocin] 300 mg PO BID #20 cap Metoprolol Succinate XL [Toprol XL] 25 mg PO DAILY #30 tab oxyCODONE/Acetaminophen [Percocet 5/325 mg Tab] 1 tab PO Q4 #30 tab - Follow Up Plan Condition: GOOD Disposition: HOME/ ROUTINE Instructions: Total Knee Replacement (DC), Hyperthyroidism (Overactive Thyroid) (DC) Additional Instructions: keep appt with Dr Rodriguez tomorrow ff up with PMD lucio for further mgt of Hyperthyroidism Immobilizer at bedtime Keep wound dry and clean Referrals: Jayden Rodriguez III, MD [Staff Provider] -
--- NOTE | 2018-07-23 14:06 | CP.PCM.PN ---
Subjective - Date & Time of Evaluation Date of Evaluation: 07/23/18 Time of Evaluation: 11:00 - Subjective Subjective: Patient seen and examined OOB. Tolerating PT well, ambulating with RW with minimal difficulty. Anterior nielson pain significantly improved after not using knee imm overnight. No new complaints. Eager to d/c home. Objective - Vital Signs/Intake and Output Vital Signs (last 24 hours): Temp Pulse Resp BP Pulse Ox 98.3 F 99 H 20 121/82 100 07/23/18 07:59 07/23/18 09:33 07/23/18 07:59 07/23/18 09:33 07/23/18 07:59 - Medications Medications: Current Medications Acetaminophen (Tylenol 325mg Tab) 650 mg PO Q4 PRN PRN Reason: Pain, Mild (1-3) Calcium/Vitamin D (Oyster Shell Calcium/Vitamin D 500 Mg-200 Iu) 1 tab PO DAILY [facility] Last Admin: 07/23/18 09:35 Dose: 1 tab Cholecalciferol (Vitamin D) 2,000 intlu PO DAILY [facility] Last Admin: 07/23/18 09:38 Dose: 2,000 intlu Cyproheptadine HCl (Periactin) 4 mg PO TID [facility] Last Admin: 07/23/18 12:37 Dose: 4 mg Docusate Sodium (Colace) 100 mg PO BID [facility] Last Admin: 07/23/18 09:33 Dose: Not Given Doxepin HCl (Sinequan) 150 mg PO DAILY@2100 [facility] Last Admin: 07/22/18 22:20 Dose: 150 mg Enoxaparin Sodium (Lovenox) 40 mg SC DAILY [facility]; Protocol Last Admin: 07/23/18 09:37 Dose: 40 mg Folic Acid (Folic Acid) 1 mg PO DAILY [facility] Last Admin: 07/23/18 09:37 Dose: 1 mg Gabapentin (Neurontin) 600 mg PO BID [facility] Last Admin: 07/23/18 09:35 Dose: 600 mg Ketorolac Tromethamine (Toradol) 30 mg IM Q6 PRN PRN Reason: Pain, moderate (4-7) Last Admin: 07/23/18 01:55 Dose: 30 mg Methimazole (Tapazole) 20 mg PO TID [facility] Last Admin: 07/23/18 12:37 Dose: 20 mg Metoclopramide HCl (Reglan) 5 mg PO [facility] Last Admin: 07/23/18 11:30 Dose: 5 mg Metoprolol Tartrate (Lopressor) 12.5 mg PO Q12 [facility] Last Admin: 07/23/18 09:33 Dose: 12.5 mg Ondansetron HCl (Zofran Inj) 4 mg IVP Q6 PRN PRN Reason: Nausea/Vomiting Last Admin: 07/18/18 01:09 Dose: 4 mg Oxycodone/Acetaminophen (Percocet 5/325 Mg Tab) 2 tab PO Q4 PRN PRN Reason: Pain, severe (8-10) Stop: 07/25/18 05:01 Last Admin: 07/23/18 12:36 Dose: 2 tab Oxycodone/Acetaminophen (Percocet 5/325 Mg Tab) 1 tab PO Q4 PRN PRN Reason: Pain, moderate (4-7) Stop: 07/25/18 05:03 Pantoprazole Sodium (Protonix Ec Tab) 40 mg PO BID [facility] Last Admin: 07/23/18 09:37 Dose: 40 mg Trazodone HCl (Desyrel) 100 mg PO HS [facility] Last Admin: 07/22/18 22:16 Dose: 100 mg - Labs Labs: 07/22/18 10:02 07/22/18 05:45 - Extremities Exam Additional comments: R knee: Dressing CDI, mild swelling minimal tenderness and edema at anterior mid nielson, no redness sensation intact SP/DP/TN motor intact EHL/FHl/TA/G pedal pulses intact calves soft NT b/l Assessment and Plan (1) Status post total right knee replacement Assessment & Plan: POD #10 s/p R TKA -PT/OT WBAT -DVT ppx -orthopedically stable for d/c to home -f/u in office within 7-10 days -above d/w Dr. Rodriguez in agreement Status: Acute
[2018-07-23 17:17] VITALS: BP 141/99; TEMP 98.6
--- NOTE | 2018-07-23 20:59 | CP.PCM.PN ---
Subjective - Date & Time of Evaluation Date of Evaluation: 07/21/18 Time of Evaluation: 12:00 - Subjective Subjective: no acute knee pain Objective - Vital Signs/Intake and Output Vital Signs (last 24 hours): Temp Pulse Resp BP Pulse Ox 98.6 F 99 H 20 141/99 H 100 07/23/18 17:16 07/23/18 17:16 07/23/18 17:16 07/23/18 17:16 07/23/18 17:16 - Labs Labs: 07/22/18 10:02 07/22/18 05:45 - Constitutional Appears: Well - Head Exam Head Exam: ATRAUMATIC, NORMAL INSPECTION, NORMOCEPHALIC - Eye Exam Eye Exam: EOMI, Normal appearance Pupil Exam: NORMAL ACCOMODATION, PERRL - ENT Exam ENT Exam: Mucous Membranes Moist, Normal Exam - Neck Exam Neck Exam: Normal Inspection - Respiratory Exam Respiratory Exam: Clear to Ausculation Bilateral, NORMAL BREATHING PATTERN - Cardiovascular Exam Cardiovascular Exam: REGULAR RHYTHM - GI/Abdominal Exam GI & Abdominal Exam: Soft, Normal Bowel Sounds - Rectal Exam Rectal Exam: NORMAL INSPECTION - Exam External exam: NORMAL EXTERNAL EXAM - Extremities Exam Extremities Exam: Full ROM Additional comments: right leg weakness - Back Exam Back Exam: NORMAL INSPECTION - Neurological Exam Neurological Exam: Alert, Awake Neuro motor strength exam: Right Lower Extremity: 3 - Psychiatric Exam Psychiatric exam: Normal Affect Assessment and Plan (1) Osteoarthritis of right knee Assessment & Plan: plan for physical, occupational therapy, Dc planning equipment eval Status: Chronic
--- NOTE | 2018-07-23 21:01 | CP.PCM.PN ---
Subjective - Date & Time of Evaluation Date of Evaluation: 07/22/18 Time of Evaluation: 13:00 - Subjective Subjective: patient lying in bed, no acute complaints at present Objective - Vital Signs/Intake and Output Vital Signs (last 24 hours): Temp Pulse Resp BP Pulse Ox 98.6 F 99 H 20 141/99 H 100 07/23/18 17:16 07/23/18 17:16 07/23/18 17:16 07/23/18 17:16 07/23/18 17:16 - Labs Labs: 07/22/18 10:02 07/22/18 05:45 - Constitutional Appears: Well - Head Exam Head Exam: ATRAUMATIC, NORMAL INSPECTION, NORMOCEPHALIC - Eye Exam Eye Exam: EOMI, Normal appearance Pupil Exam: NORMAL ACCOMODATION, PERRL - ENT Exam ENT Exam: Mucous Membranes Moist, Normal Exam - Neck Exam Neck Exam: Full ROM - Respiratory Exam Respiratory Exam: Clear to Ausculation Bilateral, NORMAL BREATHING PATTERN - Cardiovascular Exam Cardiovascular Exam: REGULAR RHYTHM - GI/Abdominal Exam GI & Abdominal Exam: Soft, Normal Bowel Sounds - Rectal Exam Rectal Exam: NORMAL INSPECTION - Exam External exam: NORMAL EXTERNAL EXAM - Extremities Exam Extremities Exam: Full ROM, Normal Capillary Refill, Normal Inspection - Back Exam Back Exam: NORMAL INSPECTION - Neurological Exam Neurological Exam: Alert, Awake Neuro motor strength exam: Right Lower Extremity: 3 - Psychiatric Exam Psychiatric exam: Normal Affect - Skin Skin Exam: Dry, Normal Color Assessment and Plan (1) Osteoarthritis of right knee Status: Chronic (2) Hyperthyroidism Status: Acute (3) Status post total right knee replacement Assessment & Plan: plan for discharge , follow up with PMD and orthopedic physician, status post physical, occupational therapy program Status: Acute (4) Depression Status: Chronic
--- NOTE | 2018-07-24 00:25 | PN ---
DATE: 07/23/2018 LOCATION: Room 706. SUBJECTIVE: This is a 57-year-old female with recent right total knee replacement, currently undergoing physical and occupational therapy and is now being followed closely also for metabolic management as noted. She also has overt hyperthyroidism noted both historically, clinically and biochemically. LABORATORY DATA: Her repeat thyroid study showed a total T4 or thyroxine level of 15.8 with a TSH of less than 0.02 and a free T4 of 2.27. Her chemistry showed a BUN of 16, sodium 138, potassium 5, chloride 104, CO2 of 25, glucose 127 and creatinine 0.7. Her calcium level is 10.6. Her parathyroid hormone level is 52 which is normal. The elevated calcium level is most likely related to the increased bone resorption from the intercurrent hyperthyroidism. ASSESSMENT: She also has possible autoimmune thyroiditis causing them recent marked thyrotoxicosis as noted. PLAN OF MANAGEMENT: The patient is possibly scheduled for eventual discharge today and so we will recommend change of medication dosing at this time to enhance compliance. We will recommend Tapazole given as 30 mg once daily in the morning as ordered. We will continue the beta-blockers as given. We will obtain serial thyroid studies and titrate her dose regimen accordingly. We will also recommend close medical followup as outpatient for repeat thyroid studies and dose adjustments to be undertaken accordingly. Caitlyn Muñoz MD
== END 2018-07-23 18:45 | disposition home or self-care (01) | DRG 561 ==
LOC: H.TCU 21:53
PROVIDERS: ADMIT Internal Medicine; ATTEND Internal Medicine
PROC: F08Z0FZ Bathing/Showering Techniques Treatment using Assistive, Adaptive, Supportive or Protective Equipment (ICD-10-PCS; principal; 2018-07-15)
PROC: F08Z1FZ Dressing Techniques Treatment using Assistive, Adaptive, Supportive or Protective Equipment (ICD-10-PCS; 2018-07-15)
PROC: F08Z4FZ Home Management Treatment using Assistive, Adaptive, Supportive or Protective Equipment (ICD-10-PCS; 2018-07-15)
PROC: F07Z9FZ Gait Training/Functional Ambulation Treatment using Assistive, Adaptive, Supportive or Protective Equipment (ICD-10-PCS; 2018-07-15)
PROC: F07Z8ZZ Transfer Training Treatment (ICD-10-PCS; 2018-07-15)
PROC: F07L6GZ Therapeutic Exercise Treatment of Musculoskeletal System - Lower Back / Lower Extremity using Aerobic Endurance and Conditioning Equipment (ICD-10-PCS; 2018-07-15)
DX: Z47.1 Aftercare following joint replacement surgery (principal); Z96.653 Presence of artificial knee joint, bilateral; Z88.0 Allergy status to penicillin; F43.10 Post-traumatic stress disorder, unspecified; E05.90 Thyrotoxicosis, unspecified without thyrotoxic crisis or storm; I10 Essential (primary) hypertension; R00.0 Tachycardia, unspecified; Z91.19 Patient's noncompliance with other medical treatment and regimen; E06.3 Autoimmune thyroiditis; E55.9 Vitamin D deficiency, unspecified; R10.13 Epigastric pain; K29.70 Gastritis, unspecified, without bleeding; F11.10 Opioid abuse, uncomplicated; F32.9 Major depressive disorder, single episode, unspecified; F17.200 Nicotine dependence, unspecified, uncomplicated